=== PATIENT | female | born 1965 | race Caucasian/White ===

== ENCOUNTER → 2017-07-11 18:37 | Outpatient (CLI) | payer BC, SELFPAY ==
[2017-07-15 13:23] LABS: HPV Reflexed? NOT INDICATED
== END ==
PROVIDERS: Visit Provider Obstetrics & Gynecology
DX: Z12.4 Encounter for screening for malignant neoplasm of cervix (principal)
CPT/HCPCS: 88175; G0145

== ENCOUNTER → 2017-08-28 08:54 | Outpatient (CLI) | payer BC, SELFPAY ==
[2017-08-28 10:55] LABS: Hematocrit 37.8 % (37-47); Hemoglobin 13.1 g/dl (12.0-15.0); Mean Corp Hgb Conc 34.7 g/gl (32-36); Mean Corpuscular Hgb 31.3 pg (27.0-32.0); Mean Corpuscular Volume 90.2 fL (81-99); Mean Platelet Vol. 11.1 fl (6.2-12.0); Platelet Count 275 K/mm3 (150-450); RBC Distribution Width CV 12.4 % (11.6-14.6); RBC Distribution Width SD 40.3 fl (35.1-43.9); Red Blood Count 4.19 M/mm3 (4.2-5.4); White Blood Count 5.8 K/mm3 (4.4-11.0)
[2017-08-28 10:56] LABS: Scan Indicated on CBC? Y/N NO
[2017-08-28 14:49] LABS: Chlamydia Trachomatis by PCR Negative (Negative); Neisserai gonorrhoeae by PCR Negative (Negative); Probe Check PASS; Sample Adequacy Control PASS; Specimen Processing Control PASS
[2017-08-29 09:29] LABS: HSV 2 IgG < 0.91 index (0.00-0.90)
[2017-08-31 01:20] LABS: Rapid Plasmin Reagin (RPR) NONREACTIVE (NONREACTIVE)
[2017-08-31 03:08] LABS: HSV 1 By PCR Negative (Negative)
[2017-08-31 11:41] LABS: HSV 2 By PCR Negative (Negative)
== END ==
PROVIDERS: Visit Provider Obstetrics & Gynecology
DX: L98.9 Disorder of the skin and subcutaneous tissue, unspecified (principal)
CPT/HCPCS: 36415; 85027; 86592; 86695; 86696; 87491; 87529; 87591

== ENCOUNTER → 2017-10-31 16:23 | Outpatient (CLI) | payer BC, SELFPAY ==
--- NOTE | 2017-10-31 16:28 | BI_ITS ---
MAMMOGRAPHY - BILATERAL SCREENING 3-D JOSE ALBERTO SYNTHESIS REASON FOR EXAM: Female, 52 years old. Bilateral Screening 3-D tomosynthesis PERTINENT HISTORY: Aunt with breast cancer.. TECHNIQUE: 2-D mammograms and 3-D Jose Alberto synthesis of the breast (s) were performed. CAD was performed. COMPARISON: 06/02/2016 FINDINGS: The breast composition is Extremely dense tissue. Scattered benign calcifications are seen. No dense spiculated masses or suspicious microcalcifications are identified. No architectural distortion is identified. There is no skin thickening or retraction. There has been no significant change since the prior study. BI/SCREENING MAMM (CAD), BILAT IMPRESSION: No mammographic signs of malignancy. Routine yearly mammograms recommended. ASSESSMENT CATEGORY: BIRADS Category 2: Benign. A letter regarding these results will be sent to the patient by the facility within 30 days. FOLLOW UP RECOMMENDATION: Yearly follow up mammogram recommended. (A) Approximately 10% of breast cancers are not detected by mammography. A normal mammogram should not delay biopsy of a clinically suspicious abnormality. Electronically Signed: Don Hogan MD at 7:49 EDT , Service support ,
== END ==
PROVIDERS: Family Provider Family Medicine; PCP Family Medicine; Visit Provider Obstetrics & Gynecology
DX: Z12.31 Encounter for screening mammogram for malignant neoplasm of breast (principal)
CPT/HCPCS: 77063; 77067

== ENCOUNTER → 2018-12-27 10:34 | Outpatient (CLI) | payer BC, SELFPAY ==
--- NOTE | 2018-12-27 10:48 | BI_ITS ---
MAMMOGRAPHY - BILATERAL SCREENING REASON FOR EXAM: Female, 53 years old. Routine annual screening examination. PERTINENT HISTORY: Aunts with breast cancer. TECHNIQUE: Digital bilateral breast jose alberto (3D mammographic acquisition) in the CC and MLO projections. 2-D mediolateral oblique (MLO) and craniocaudad (CC) views of both breasts were obtained. CAD: Full Field Digital Mammography with Computer Added Detection was performed. COMPARISON: Comparison is made with prior study dated October 31, 2017 and June 02, 2016. FINDINGS: Breast Composition: The breasts are extremely dense, which lowers the sensitivity of mammography. There are no dominant masses or suspicious calcifications. No other significant abnormalities are identified. There has been no significant change since the prior study. BI/SCREEN MAMM (CAD) W/JOSE ALBERTO BILAT IMPRESSION: Stable bilateral screening mammogram. Yearly follow-up mammogram recommended. (A) ASSESSMENT CATEGORY: BIRADS Category 1: Negative. A letter regarding these results will be sent to the patient by the facility within 30 days. Approximately 10% of breast cancers are not detected by mammography. A normal mammogram should not delay biopsy of a clinically suspicious abnormality. [id number] Electronically Signed: Rufus Rogers, at 12:27 EDT , Service support ,
== END ==
PROVIDERS: Family Provider Family Medicine; PCP Family Medicine; Referring Provider Obstetrics & Gynecology; Visit Provider Obstetrics & Gynecology
DX: Z12.31 Encounter for screening mammogram for malignant neoplasm of breast (principal)
CPT/HCPCS: 77063; 77067

== ENCOUNTER → 2019-10-14 13:40 | Outpatient (CLI) | payer BC, SELFPAY ==
[2019-10-14 16:26] LABS: Hemoglobin 13.1 g/dL (12.0-15.0); Mean Corp Hgb Conc 32.8 g/dL (32-36); Mean Corpuscular Hgb 30.6 pg (27.0-32.0); Mean Corpuscular Volume 93.5 fL (81-99); Mean Platelet Vol. 10.9 fl (6.2-12.0); Platelet Count 240 K/mm3 (150-450); RBC Distribution Width CV 12.9 % (11.6-14.6); RBC Distribution Width SD 43.1 fl (35.1-43.9); Red Blood Count 4.28 M/mm3 (4.2-5.4); White Blood Count 7.5 K/mm3 (4.4-11.0)
[2019-10-14 17:23] LABS: HIV - WCH Non-Reactive (Nonreactive)
== END ==
PROVIDERS: PCP Family Medicine; Visit Provider Obstetrics & Gynecology
DX: B00.9 Herpesviral infection, unspecified (principal)
CPT/HCPCS: 36415; 85027; 86703

== ENCOUNTER → 2019-10-23 09:18 | Outpatient (CLI) | payer BC, SELFPAY ==
[2019-10-23 10:49] LABS: Glucose 98 mg/dL (74-106)
[2019-10-23 11:04] LABS: Hemoglobin A1c 5.6 % (3.8-5.6)
== END ==
PROVIDERS: PCP Family Medicine; Visit Provider Obstetrics & Gynecology
DX: R73.01 Impaired fasting glucose (principal)
CPT/HCPCS: 36415; 82947; 83036

== ENCOUNTER → 2020-05-14 | Outpatient (CLI) | payer BC, SELFPAY ==
[2020-05-21 01:29] LABS: HPV APTIMA, High Risk Positive (Negative)
== END | disposition home or self-care (01) ==
LOC: LABSPEC 13:34
PROVIDERS: PCP Family Medicine; Visit Provider Obstetrics & Gynecology
DX: Z12.4 Encounter for screening for malignant neoplasm of cervix (principal)
CPT/HCPCS: 87624; 88175; G0145

== ENCOUNTER → 2020-06-03 14:38 | Outpatient (CLI) | payer BC, SELFPAY ==
--- NOTE | 2020-06-03 | IMM_PTH ---
PATIENT: REID WAKEFIELD LOC: [facility] U#:[id number] AGE/SX: 59/F ROOM: RE06/03/[address]: Dr. Heather Aquino MD : 1965 BED: DIS: SPEC #: [id number] RECD: 06/07/20 14:01 STATUS: SONIA REQ #: [id number] MIA: 06/03/20 00:[address]: Heather King DEPT: IMMUNOHISTOCHEMISTRY RECD BY: Stacey Quesada ENTERED: 06/07/20 14:02 SP TYPE: IMMUNO OTHR DR: Dr. Roni Duckworth MD Tissues: A - Uterine cervix, NOS Procedures: p16 (initial) KI-67 (add) PHYSICIAN & INSTITUTION [place] [address] SPECIMEN INFORMATION: Tissue Source: A - Cervical biopsies 10, 5, 8 and 12 o'clock Clinical Info: ASCUS/HPV positive Specimen Number: [id number] CPT code: 21486, 20230 METHODOLOGY: Deparaffinized sections of prefer/formalin-fixed tissue or PAP/DQ stained slides are incubated with monoclonal/polyclonal antibodies/oligonucleotide probes. Localization is made via biotin free immunoperoxidase method. Appropriate controls are performed and reacted as expected. Results on target cell population are indicated in the following table: RESULTS: ANTIBODY / CLONE RESULT Block A P16 (E6H4) negative Ki-67 (30-9) negative These tests were developed and their performance characteristics determined by [facility]. They may not have been cleared or approved by the U.S. Food and Drug Administration. The FDA has determined that such clearance or approval is not necessary. The above immunohistochemical/dualISH markers are ordered and reviewed by the Pathologist. INTERPRETATION: A. Cervix at 10, 5, 8 and 12 o'clock, biopsies: Focal minimal changes suspicious for HPV cytopathic effects. SJ:dagoberto 06/08/2020
--- NOTE | 2020-06-03 | CER_PTH ---
PATIENT: REID WAKEFIELD LOC: [facility] U#:[id number] AGE/SX: 59/F ROOM: RE06/03/[address]: Dr. Heather Aquino MD : 1965 BED: DIS: SPEC #: [id number] RECD: 06/03/20 16:03 STATUS: SONIA MARY #: [id number] MIA: 06/03/20 00:[address]: Heather King DEPT: SURGICAL PATHOLOGY RECD BY: Melany Sidhu ENTERED: 06/04/20 08:20 SP TYPE: CERV OTHR DR: Dr. Roni Duckworth MD Tissues: A - Uterine cervix, NOS B - Endocervical Procedures: Surgery Specimen Level IV HEADER OPERATION: Colposcopy PRE-OP DIAGNOSIS: ASCUS HPV positive TISSUE SUBMITTED: A - Cervical biopsies 10, 5, 8 and 11 o'clock, B - ECC MICROSCOPIC DIAGNOSIS A. Cervix 10, 5, 8 and 11 o'clock, biopsy: Focal minimal changes suspicious for HPV cytopathic effects. Focal mild chronic inflammation. See comment. B. ECC: Fragments of benign ecto- and endocervical epithelium and mucous, negative for dysplasia. ALEJANDRO:dagoberto 06/07/2020 COMMENT A. Immunohistochemistry ([id number]) for surrogate HPV marker (p16) will be performed and results will be reported separately. MICROSCOPIC DESCRIPTION Slides are reviewed. GROSS DESCRIPTION A - Received in fixative is one container labeled with the patient's name and designated cervical biopsy. The specimen consists of multiple irregular fragments of light dee soft tissue that in aggregate measure 1.4 x 0.5 x 0.2 cm. The specimen is totally submitted in one cassette. B - Received in fixative is one container labeled with the patient's name and designated ECC. The specimen consists of multiple fragments of dee mucoid tissue that in aggregate measure 2.5 x 0.5 x 0.1 cm. The specimen is totally submitted in one cassette. / ALEJANDRO:dagoberto 06/04/20 TC:5 CPT: 04610 x2
== END ==
PROVIDERS: PCP Family Medicine; Visit Provider Obstetrics & Gynecology
DX: R87.810 Cervical high risk human papillomavirus (HPV) DNA test positive (principal)
CPT/HCPCS: 88305; 88341; 88342

== ENCOUNTER → 2020-07-08 13:51 | Outpatient (CLI) | payer BC, SELFPAY ==
--- NOTE | 2020-07-08 13:54 | BI_ITS ---
MAMMOGRAPHY - BILATERAL SCREENING REASON FOR EXAM: Female, 54 years old. Routine annual screening examination. PERTINENT HISTORY: Aunts with breast cancer. TECHNIQUE: Digital bilateral breast jose alberto (3D mammographic acquisition) in the CC and MLO projections. 2-D mediolateral oblique (MLO) and craniocaudad (CC) views of both breasts were obtained. CAD: Full Field Digital Mammography with Computer Added Detection was performed. COMPARISON: Comparison is made with prior study of 12/27/2018 and 10/31/2017. FINDINGS: Breast Composition: The breasts are extremely dense, which lowers the sensitivity of mammography. There are no dominant masses or suspicious calcifications. No other significant abnormalities are identified. There has been no significant change since the prior study. BI/SCRN MAMM (CAD)W/JOSE ALBERTO BILAT IMPRESSION: Stable bilateral screening mammogram. Yearly follow-up mammogram recommended. (A) ASSESSMENT CATEGORY: BIRADS Category 1: Negative. A letter regarding these results will be sent to the patient by the facility within 30 days. Approximately 10% of breast cancers are not detected by mammography. A normal mammogram should not delay biopsy of a clinically suspicious abnormality. [id number] Electronically Signed: Rufus Rogers MD at 14:58 EDT , Service support ,
== END ==
PROVIDERS: PCP Family Medicine; Referring Provider Obstetrics & Gynecology; Visit Provider Obstetrics & Gynecology
DX: Z12.31 Encounter for screening mammogram for malignant neoplasm of breast (principal)
CPT/HCPCS: 77063; 77067

== ENCOUNTER 2021-07-05 13:21 | Outpatient (CLI) | payer BC, SELFPAY ==
[2021-07-11 20:32] LABS: HPV APTIMA, High Risk Negative (Negative)
== END 2021-07-05 23:59 | disposition home or self-care (01) ==
LOC: LABSPEC 13:23
PROVIDERS: PCP Family Medicine; Visit Provider Obstetrics & Gynecology
DX: Z12.4 Encounter for screening for malignant neoplasm of cervix (principal)
CPT/HCPCS: 87624; 88175; G0145

== ENCOUNTER → 2021-08-19 | Outpatient (CLI) | payer BC, SELFPAY ==
--- NOTE | 2021-08-19 10:16 | BI_ITS ---
MAMMOGRAPHY - BILATERAL SCREENING REASON FOR EXAM: Female, 56 years old. Routine annual screening examination. PERTINENT HISTORY: Aunts with breast cancer. TECHNIQUE: Digital bilateral breast jose alberto (3D mammographic acquisition) in the CC and MLO projections. 2-D mediolateral oblique (MLO) and craniocaudad (CC) views of both breasts were obtained. CAD: Full Field Digital Mammography with Computer Added Detection was performed. COMPARISON: Comparison is made with prior study 07/08/2020 and 12/27/2018. FINDINGS: Breast Composition: The breasts are extremely dense, which lowers the sensitivity of mammography. There are no dominant masses or suspicious calcifications. Stable small benign-appearing bilateral axillary lymph nodes. No other significant abnormalities are identified. There has been no significant change since the prior study. BI/SCRN MAMM (CAD)W/JOSE ALBERTO BILAT IMPRESSION: Stable bilateral screening mammogram. Yearly follow-up mammogram recommended. (A) ASSESSMENT CATEGORY: BIRADS Category 2: Benign. A letter regarding these results will be sent to the patient by the facility within 30 days. Approximately 10% of breast cancers are not detected by mammography. A normal mammogram should not delay biopsy of a clinically suspicious abnormality. [id number] Electronically Signed: Rufus Rogers MD at 11:50 EDT ,
== END | disposition home or self-care (01) ==
LOC: OPBI 10:14
PROVIDERS: PCP Family Medicine; Visit Provider Obstetrics & Gynecology
DX: Z12.31 Encounter for screening mammogram for malignant neoplasm of breast (principal)
CPT/HCPCS: 77063; 77067

== ENCOUNTER → 2022-09-20 | Outpatient (CLI) | payer BC, SELFPAY ==
--- NOTE | 2022-09-20 10:11 | BI_ITS ---
MAMMOGRAPHY - BILATERAL SCREENING REASON FOR EXAM: Female, 57 years old. Routine annual screening examination. PERTINENT HISTORY: Aunts with breast cancer. TECHNIQUE: Digital bilateral breast jose alberto (3D mammographic acquisition) in the CC and MLO projections. 2-D mediolateral oblique (MLO) and craniocaudad (CC) views of both breasts were obtained. CAD: Full Field Digital Mammography with Computer Added Detection was performed. COMPARISON: Comparison is made with prior study August 19, 2021 and July 08, 2020. FINDINGS: Breast Composition: The breasts are extremely dense, which lowers the sensitivity of mammography. There are no dominant masses or suspicious calcifications. Stable small benign-appearing bilateral axillary lymph nodes. No other significant abnormalities are identified. There has been no significant change since the prior study. BI/SCRN MAMM (CAD)W/JOSE ALBERTO BILAT IMPRESSION: Stable bilateral screening mammogram. Yearly follow-up mammogram recommended. (A) ASSESSMENT CATEGORY: BIRADS Category 2: Benign. A letter regarding these results will be sent to the patient by the facility within 30 days. Approximately 10% of breast cancers are not detected by mammography. A normal mammogram should not delay biopsy of a clinically suspicious abnormality. [id number] Electronically Signed: Rufus Rogers MD at 11:17 EDT ,
== END | disposition home or self-care (01) ==
LOC: OPBI 10:09
PROVIDERS: PCP Family Medicine; Referring Provider Student in an Organized Health Care Education/Training Program; Visit Provider Student in an Organized Health Care Education/Training Program
DX: Z12.31 Encounter for screening mammogram for malignant neoplasm of breast (principal); Z80.3 Family history of malignant neoplasm of breast
CPT/HCPCS: 77063; 77067

== ENCOUNTER → 2023-10-25 | Outpatient (CLI) | payer BC, SELFPAY ==
--- NOTE | 2023-10-25 10:43 | BI_ITS ---
MAMMOGRAPHY - BILATERAL SCREENING REASON FOR EXAM: Female, 58 years old. Routine annual screening examination. PERTINENT HISTORY: Aunts with breast cancer. TECHNIQUE: Digital bilateral breast jose alberto (3D mammographic acquisition) in the CC and MLO projections. 2-D mediolateral oblique (MLO) and craniocaudad (CC) views of both breasts were obtained. CAD: Full Field Digital Mammography with Computer Added Detection was performed. COMPARISON: Comparison is made with prior study dated September 20, 2022 and August 19, 2021. FINDINGS: Breast Composition: The breasts are extremely dense, which lowers the sensitivity of mammography. There are no dominant masses or suspicious calcifications. Stable small benign appearing bilateral axillary lymph nodes. No other significant abnormalities are identified. There has been no significant change since the prior study. BI/SCRN MAMM (CAD)W/JOSE ALBERTO BILAT IMPRESSION: Stable bilateral screening mammogram. Yearly follow-up mammogram recommended. (A) ASSESSMENT CATEGORY: BIRADS Category 2: Benign. A letter regarding these results will be sent to the patient by the facility within 30 days. Approximately 10% of breast cancers are not detected by mammography. A normal mammogram should not delay biopsy of a clinically suspicious abnormality. [id number] Electronically Signed: Rufus Rogers MD at 13:26 EDT ,
== END | disposition home or self-care (01) ==
LOC: OPBI 10:41
PROVIDERS: PCP Obstetrics & Gynecology; Referring Provider Obstetrics & Gynecology; Visit Provider Obstetrics & Gynecology
DX: Z12.31 Encounter for screening mammogram for malignant neoplasm of breast (principal); Z80.3 Family history of malignant neoplasm of breast
CPT/HCPCS: 77063; 77067

== ENCOUNTER → 2024-11-07 | Outpatient (CLI) | payer BC, SELFPAY ==
--- NOTE | 2024-11-07 10:40 | BI_ITS ---
EXAM: SCRN MAMM (CAD)W/JOSE ALBERTO BILAT DATE: 11/07/2024 CLINICAL HISTORY: F, Age 59 y/o , SCREENING TECHNIQUE: SCRN MAMM (CAD)W/JOSE ALBERTO BILAT COMPARISON: Prior exam(s) were compared FINDINGS: TISSUE DENSITY: The breasts are heterogeneously dense, which may obscure small masses. Bilateral Breast Mammographic Findings: No suspicious masses, calcifications or other abnormalities are identified. BI/SCRN MAMM (CAD)W/JOSE ALBERTO BILAT IMPRESSION: No mammographic evidence of malignancy in either breast OVERALL FINAL ASSESSMENT BI-RADS 1: NEGATIVE. RECOMMENDATION: Routine annual follow-up in 1 Year A letter with findings and recommendations will be mailed to the patient. Reading Location: [id number]
--- OUTSIDE RECORDS SUMMARY | 2024-11-07 17:41 | XMS RPT_ITS | CCD ---
Author Organization [facility] Care Team Providers Care Costume Mistress Name Role Phone Edna Duckworth Primary Care Provider Required, No Pcp Unavailable Unavailable Brian Alberto Unavailable Unavailable Miryam Zapata Dr. Miryam Zapata Primary Care Raniv aildwight Alberto, Ms. Brian Mccartney Attending Arik Alberto, Ms. Brian Mccartney Attending Arik Alberto, Ms. Brian Mccartney Referring Arik Zapata, Dr. Miryam Cartwright Primary Care Allie Alberto, Ms. Brian Mccartney Attending Arik Zapata, Dr. Miryam Cartwright Primary Care Allie Alberto, Ms. Brian Mccartney Attending Miryam Cuevas MD Primary Care Provider Lexie Covarrubias MD Primary Care Provider LEXIE COVARRUBIAS Primary Care Unavailable Edna Duckworth MD Primary Care Provider [phone] MIRYAM ZAPATA Primary Care Unavailable BRIAN ALBERTO Attending Unavailable LEXIE COVARRUBIAS Primary Care Unavailable NATE ZELAYA Attending Unavailable LEXIE COVARRUBIAS Attending Unavailable LEXIE COVARRUBIAS Primary Care Unavailable EDNA DUCKWORTH Primary Care Unavailable JENAE COSTA Attending Unavailable Jenae Costa Referring Unavailable Jenae Costa Attending Unavailable Lubna Velazquez Primary Care Unavailable Allergies Allergy Classification Reported Allergen(s) Allergy Type Date of Onset Reaction(s) Facility (7 sources) Codeine; Translations: [CODEINE] Drug Allergy 4 Nausea/vomiting , Vomiting [facility] (7 sources) Morphine; Translations: [MORPHINE] Drug Allergy Nausea/vomiting , Vomiting [facility] Work Phone: Medications Current Medications Medication Drug Class(es) Dates Sig (Normalized) Sig (Original) amoxicillin 875 mg / clavulanate 125 mg oral tablet (2 sources) Penicillin-class Antibacterial Start: 10-18-2023 End: 10-28-2023 take 1 tablet by mouth twice daily amoxicillin-pot clavulanate (Augmentin) 875-125 mg tablet Indications: Acute sinusitis, recurrence not specified, unspecified location Take 1 tablet by mouth 2 times a day for 10 days. Take with a meal. 20 tablet 10/18/2023 10/28/2023 Active Start: 04-25-2022 End: 05-04-2022 take 1 tablet by mouth twice daily at mealtime amoxicillin-clavulanate 875 mg-125 mg oral tablet ; 875 milligram(s) orally 2 times a day Quantity: 20 Refills: 0 Ordered: 25-Apr-2022 Brian Alberto Start: 25-Apr-2022 End: 04-May-2022 Generic Substitution Allowed Comments: Finish all this medication unless otherwise directed by prescriber.Take with food or milk. Comment on above: Finish all this medi cation unless otherwise directed by prescriber.Take with food or milk. benoxinate hydrochloride 4 mg/ml / fluorescein sodium 2.5 mg/ml ophthalmic solution (1 source) Diagnostic Dye Start: 07-21-19 End: 07-22-19 fluorescein-benoxin ate 0.25-0.4 % 1 Drop (FLURESS) cetirizine hydrochloride 5 mg oral tablet (3 sources) Histamine-1 Receptor Antagonist take 1 tablet by mouth once daily cetirizine (ZYRTEC) 5 mg tablet Take 5 mg by mouth once daily. Active dexamethasone 1 mg/ml / neomycin 3.5 mg/ml / polymyxin b 34920 unt/ml ophthalmic suspension (1 source) Aminoglycoside Antibacterial, Polymyxin-class Antibacterial, Corticosteroid Start: 06-21-19 End: 06-28-19 take 1 drop(s) into the eye(s) twice daily neomycin-polymyxin- dexAMETHasone (Maxitrol) 3.5mg/mL-10,000 unit/mL-0.1 % ophthalmic suspension Indications: Blepharitis of left lower eyelid, unspecified type Administer 1 drop into the left eye 2 times a day for 7 days. 5 mL 0 06/21/2023 06/28/2023 Active erythromycin 0.005 mg/mg ophthalmic ointment (3 sources) Macrolide, Macrolide Antimicrobial Start: 06-21-19 End: 07-01-19 erythromycin (Romycin) 5 mg/gram (0.5 %) ophthalmic ointment Indications: Blepharitis of left lower eyelid, unspecified type Apply to left eye 3 times a day for 10 days. Apply Amount per Dose: 0.25 inch (~0.5 cm) per dose 3.5 g 0 06/21/2023 07/01/2023 Active Start: 07-04-2022 End: 07-10-2022 erythromycin 0.5% ophthalmic ointment ; 1 application in left eye 3 times a day x 7 days Quantity: 3 Refills: 0 Ordered: 04-Jul-2022 Brian Alberto Start: 04-Jul-2022 End: 10-Jul-2022 Generic Substitution Allowed Comments: For the eye. Start: 05-10-2021 End: 07-06-2021 erythromycin (ROMYCIN) 5 mg/ gram (0.5 %) ophthalmic ointment Use 1 application in both eyes daily at bedtime. Rub on lids and lashes at bedtime 3.5 g 1 05/10/2021 07/06/2021 Discontinued (Clinical Decision) Comment on above: Use 1 application in both eyes daily at bedtime. Rub on lids and lashes at bedtime For the eye. estradiol 0.1 mg/ml vaginal cream (8 sources) Estrogen Start: 08-13-2023 End: 08-12-2025 estradiol (ESTRACE) 0.01 % (0.1 mg/gram) vaginal cream Indications: Vaginal dryness, menopausal Use 1 g vaginally two times a week. 24 g 3 08/12/2024 08/12/2025 Active estradiol (Estra ce) 0.01 % (0.1 mg/gram) vaginal cream Insert 0.5 Applicatorfuls (2 g) into the vagina 1 (one) time per week. Active End: 08-13-2023 estradiol (ESTRACE) 0.01 % ( 0.1 mg/gram) vaginal cream Use vaginally one time a week. 0 08/13/2023 Discontinued fluorometholone 1 mg/ml ophthalmic suspension (1 source) Corticosteroid Start: 07-21-2024 fluorometholone (FML LIQUID FILM) 0.1 % ophthalmic suspension Use 1 drop in both eyes two times a day. 07/21/2024 Active fluticasone propionate 0.05 mg/actuat metered dose nasal spray (13 sources) Corticosteroid Start: 01-06-2019 take 2 spray(s) nasal route once daily fluticasone (FLONASE) 50 mcg/actuation nasal spray SPRAY 2 SPRAYS INTO EACH NOSTRIL EVERY DAY 4 01/06/2019 Active Start: 01-06-2019 take 2 spray(s) nasa l route once daily fluticasone (Flonase) 50 mcg/actuation nasal spray Administer 2 sprays into each nostril once daily. 01/06/2019 Active Flonase Quantity : 0 Refills: 0 Ordered: 04-Jul-2022 Yisel Balbuena Generic Substitution Allowed Comment on above: SPRAY 2 SPRAYS INTO EACH NOSTRIL EVERY DAY loratadine 10 mg oral tablet (4 sources) loratadine (Clar itin) 10 mg tablet Take by mouth. Active Claritin Quantit y: 0 Refills: 0 Ordered: 13-Nov-2022 Yisel Balbuena Generic Substitution Allowed montelukast 10 mg oral tablet (8 sources) Leukotriene Receptor Antagonist Start: 01-06-2019 take 1 tablet by mouth once daily montelukast (SINGULAIR) 10 mg tablet TAKE 1 TABLET BY MOUTH EVERY DAY AT NIGHT 3 01/06/2019 Active Comment on above: TAKE 1 TABLET BY RAEANN TH EVERY DAY AT NIGHT ofloxacin 3 mg/ml ophthalmic solution (1 source) Quinolone Antimicrobial Start: 07-04-2022 End: 07-10-2022 take 1 drop(s) into the eye(s) three times daily ofloxacin 0.3% ophthalmic solution ; 1 drop(s) in left eye 3 times daily x 7 days Quantity: 5 Refills: 0 Ordered: 04-Jul-2022 Brian Alberto Start: 04-Jul-2022 End: 10-Jul-2022 Generic Substitution Allowed Comments: For the eye. Comment on above: For the eye. valACYclovir 1000 mg oral tablet (15 sources) Herpesvirus Nucleoside Analog DNA Polymerase Inhibitor, Herpes Simplex Virus Nucleoside Analog DNA Polymerase Inhibitor, Herpes Zoster Virus Nucleoside Analog DNA Polymerase Inhibitor Start: 07-24-2023 End: 08-12-2025 take 1 tablet by mouth once daily valACYclovir (VALTREX) 1 gram tablet Indications: Recurrent genital herpes Take 1 tablet by mouth once daily. 90 tablet 3 08/12/2024 08/12/2025 Active Start: 04-10-2021 End: 08-13-2023 take 1000 mg by mouth once daily valACYclovir (VALTREX) 1 gram Take 1,000 mg by mouth once daily. 0 04/10/2021 08/13/2023 Discontinued Valtrex Quantity : 0 Refills: 0 Ordered: 25-Apr-2022 Yisel Balbuena Generic Substitution Allowed Comment on above: Take 1,000 mg by raeann once daily. Completed/Discontinued Medications Medication Drug Class(es) Dates Sig (Normalized) Sig (Original) loteprednol etabonate 5 mg/ml / tobramycin 3 mg/ml ophthalmic suspension (1 source) Aminoglycoside Antibacterial Start: 06-14-2021 End: 07-06-2021 Tobramycin-Lotepre d (ZYLET) 0.3-0.5 % drps Use 1 Drop in both eyes four times daily. Use 1 Drop in both eyes three times a day for 3 days, twice a day for 3 days, once daily for 3 days, then discontinue 5 mL 1 06/14/2021 07/06/2021 Discontinued (Clinical Decision) Comment on above: Use 1 Drop in both e yes four times daily. Use 1 Drop in both eyes three times a day for 3 days, twice a day for 3 days, once daily for 3 days, then discontinue metroNIDAZOLE 500 mg oral tablet (5 sources) Nitroimidazole Antimicrobial Start: 03-17-2008 End: 08-13-2023 metronidazole(FLAG YL 500 MG TAB) 1 bid X 7 days 14 0 03/17/2008 08/13/2023 Discontinued (Course of therapy completed) Comment on above: 1 bid X 7 days Problems Active Problems Problem Classification Problem Date Documented Date Episodic/Chronic E Codes: Natural/environment (1 source) Exposure to other specified factors, initial encounter; Translations: [Exposure to other specified factors, initial encounter] Onset: 11-13-2022 Episodic Headache; including migraine (1 source) Headache; including migraine; Translations: [Headache, unspecified] Onset: 04-25-2022 Inflammation; infection of eye (except that caused by tuberculosis or sexually transmitteddisease) (8 sources) Bilateral punctate keratitis of eyes; Translations: [Punctate keratitis, bilateral] Onset: 02-14-2019 06-14-2021 Chronic Menopausal disorders (5 sources) Vaginal dryness; Translations: [Menopausal and female climacteric states] Onset: 08-12-2024 08-13-2023 Chronic Other connective tissue disease (2 sources) Pain in left foot; Translations: [Pain in left foot] Onset: 11-13-2022 Episodic Other eye disorders (1 source) Bilateral epiphora of eyes due to excessive tear production; Translations: [Epiphora due to excess lacrimation, bilateral lacrimal glands] Episodic Other injuries and conditions due to external causes (1 source) Injury of left ankle; Translations: [Knee, leg, ankle, and foot injury] 11-13-2022 Episodic Other injuries and conditions due to external causes (1 source) Unspecified injury of left ankle, initial encounter; Translations: [Unspecified injury of left ankle, initial encounter] Onset: 11-13-2022 Episodic Other non-traumatic joint disorders (1 source) Pain in left ankle and joints of left foot; Translations: [Pain in left ankle] Onset: 11-13-2022 Episodic Other nutritional; endocrine; and metabolic disorders (1 source) Unintentional weight gain; Translations: [Abnormal weight gain] 08-12-2024 Episodic Other nutritional; endocrine; and metabolic disorders (1 source) Abnormal weight gain; Translations: [Unintended weight gain] Onset: 08-12-2024 Episodic Other screening for suspected conditions (not mental disorders or infectious disease) (18 sources) Patient encounter status; Translations: [Encounter for screening for malignant neoplasm of colon] Onset: 08-07-2023 08-07-2023 Episodic Other upper respiratory disease (12 sources) Seasonal allergy; Translations: [Other seasonal allergic rhinitis] Onset: 05-10-2021 Chronic Other upper respiratory disease (1 source) Allergic rhinitis due to pollen; Translations: [Allergic rhinitis due to pollen] Chronic Other upper respiratory infections (6 sources) Acute sinusitis; Translations: [Acute sinusitis, unspecified] Onset: 04-25-2022 04-25-2022 Episodic Unclassified (2 sources) ?URI 04-25-2022 Comment on above: ?URI Unclassified (2 sources) EYE PAIN 07-04-2022 Comment on above: EYE PAIN Unclassified (1 source) Acute bacterial conjunctivitis of left eye 07-04-2022 Unclassified (2 sources) L FOOT PAIN 11-13-2022 Comment on above: L FOOT PAIN Unclassified (1 source) Injury of left ankle, initial encounter 11-13-2022 Unclassified (1 source) Cough, unspecified; Translations: [Cough, unspecified] Onset: 04-25-2022 Viral infection (4 sources) Genital herpes simplex; Translations: [Herpesviral infection of urogenital system, unspecified] Onset: 08-07-2023 08-07-2023 Chronic Past or Other Problems Problem Classification Problem Date Documented Date Episodic/Chronic Anal and rectal conditions (5 sources) Rectal prolapse; Translations: [Rectal prolapse] Onset: 08-07-2023 08-07-2023 Episodic Diabetes mellitus without complication (7 sources) Prediabetes; Translations: [Prediabetes] Onset: 08-07-2023 08-07-2023 Episodic Immunizations and screening for infectious disease (4 sources) Requires tetanus and diphtheria vaccination; Translations: [Encounter for immunization] Onset: 08-07-2023 08-07-2023 Episodic Inflammation; infection of eye (except that caused by tuberculosis or sexually transmitteddisease) (16 sources) Allergic conjunctivitis of bilateral eyes; Translations: [Acute atopic conjunctivitis, bilateral] Onset: 05-10-2021 Episodic Malaise and fatigue (1 source) Other malaise; Translations: [Other malaise] Onset: 04-25-2022 Episodic Other eye disorders (8 sources) Meibomian gland dysfunction of bilateral eyes; Translations: [Meibomian gland dysfunction right eye, upper and lower eyelids] Onset: 01-17-2019 01-17-2019 Episodic Other eye disorders (7 sources) Bilateral epiphora of eyes; Translations: [Unspecified epiphora, bilateral] Onset: 07-20-2021 Episodic Other eye disorders (1 source) Other specified disorders of eye and adnexa; Translations: [Other specified disorders of eye and adnexa] Onset: 07-04-2022 Episodic Unclassified (2 sources) Onset: 08-07-2023 08-07-2023 Unclassified (2 sources) Patient encounter status 08-12-2024 Results Test Name Value Interpretation Reference Range Facil josé luis Pisano 08-12-2024 CNOV Office Visit (OBGYWM ) JENNY WAKEFIELD ([id number]) 1965 F Date Time Provider Department 08/12/24 2:30 PM JENAE COSTA OBBRANNONWKerrie During your visit today, we recorded the following information about you: Blood pressure Weight Height 132/86 75.8 kg 1.57 m Jenae Costa APRN.CNP 08/12/2024 6:31 PM Signed Correspondence Dictator offered: Patient declinesTripp Alvarado is a 59 year old who presents for an annual gynecologic exam without complaints. Postmenopausal: Yes since age 52 HRT use: Yes vaginal cream estrace Still get period: No Menopause symptoms: Hot flashes; Night sweats; Vaginal dryness - symptoms improving STD: genital HSV, no outbreaks Time with current partner: 37 years HPV vaccine: No; Last pap smear: 08/13/2023 normal HPV: 2023 negative History of abnormal pap:Yes, ASCUS HRHPV pos colposcopy Bothersome pelvic pain: No Last mammogram: 2023 normal [facility] History of abnormal mammogram: Yes axillary lymph nodes noted OB History Gravida2 Para2 Term0 Preterm0 AB0 Living3 SAB0 IAB0 Ectopic0 Multiple1 Live Births0 Comment: Twin girls 1 boy FAMILY HISTORY Problem Relation Age of Onset Macular Degen Paternal Grandmother Breast Cancer Paternal Aunt Breast Cancer Paternal Aunt Breast Cancer Paternal Aunt SOCIAL HISTORY Social History Tobacco Use Smoking status: Former Smokeless tobacco: Never Vaping Use Vaping status: Never Used Substance Use Topics Alcohol use: No Drug use: No REVIEW OF SYSTEMS Abdomen: No abdominal pain, nausea, vomiting, diarrhea, or constipation. No bloating, early satiety, indigestion, or increased flatulence. Bladder: No dysuria, gross hematuria, urinary frequency, urinary urgency, or incontinence Breast: No breast lumps, nipple d/c, overlying skin changes, redness or skin retraction Allergies and current medication updated:Yes SENSITIVE EXAM: The sensitive examination was discussed with the Patient or Patient's Authorized Crystal Gazer. As applicable, any other physician, advance practice provider, medical student, or other health professional student that will be observing or involved in the sensitive examination for educational or training purposes was discussed with the Patient or Authorized Crystal Gazer. The Patient or Authorized Crystal Gazer has agreed to proceed with the sensitive examination. (Sensitive examination includes inspection and/or palpation of the breasts, pelvis, prostate and anorectal regions). EXAM: BP 132/86 Ht 5' 1.811 (1.57m) Wt 167 lb (75.8kg) LMP 03/04/2008 BMI 30.73 kg/(m2). GENERAL: pleasant, female in no apparent distress HEENT: Normocephalic, atraumatic, mucus membranes moist, and no lesions NECK: Supple, full range of motion, no adenopathy, and thyroid normal DERMATOLOGY: Normal, without lesions, non-icteric, and non-hirsute BREAST: soft, non-tender, symmetric, no dominant mass, normal nipple-areolar complex, no lymphadenopathy, and no nipple discharge CHEST: Normal inspiratory effort ABDOMEN: soft, non-tender, and no masses PELVIC: external genitalia normal, normal Bartholin's glands, urethra, Wacissa's glands, no vulvar lesions, no cervical lesions, good vaginal support, physiologic discharge present, normal appearing perineal body and perianal region BIMANUAL: uterus normal size, shape and consistency, no adnexal masses, and non-tender RECTOVAGINAL: deferred. NEURO: alert and oriented x3,exam grossly non-focal EXTREMITIES: normal ASSESSMENT/PLAN: 1) Health maintenance: Pap/HPV up to date. Mammogram ordered Mammogram up to date Nutrition, exercise and routine health maintenance exams reviewed. Calcium/Vitamin D supplementation information provided. Colon cancer screening: patient to discuss with PCP 2. Vaginal dryness, menopausal - ICD9: 627.2, ICD10: N95.1 - ESTRADIOL 0.01% (0.1 MG/GRAM) VAGINAL CREAM 3. Recurrent genital herpes - ICD9: 054.10, ICD10: A60.00 - VALACYCLOVIR 1 GRAM TABLET 4. Unintended weight gain - ICD9: 783.1, ICD10: R63.5 - Eat primarily whole foods. Limit carbs, especially processed carbs. Eat - Meat, vegetables and fruits with skin on if possible, eggs, cheese. - Do not drink your calories - 30 grams of protein for your first meal of the day decreases your hunger during the day by up to 40 %. Options include: Premier Protein or generic 30 gm protein 1 gm sugar or 5 eggs or 2-3 eggs and some unbreaded meat and/or cheese. No fruit, vegetables, bread, grain, yogurt, Smoothies, etc. - Walk for 15 minutes immediately after meal 5) Follow up one year or sooner as needed VAL Baldwin Amy, APRN.CNP 08/12/2024 3:18 PM Signed - Eat primarily whole foods. Limit carbs, especially processed carbs. Eat - Meat, vegetables and fruits with skin on if possible, eggs, cheese. - Do not drink your calories - 30 grams of protein for your first patsy (more content not included)... Normal [facility] CBC W Auto Differential pane l (Bld)on 08-07-2023 Basophils (Bld) [#/Vol] 0.04 10*3/uL [facility] Basophils/100 WBC (Bld) 0.5 % 0.0 - 2.0 % [facility] Eosinophils (Bld) [#/Vol] 0.13 10*3/uL [facility] Eosinophils/100 WBC (Bld) 1.6 % 0.0 - 6.0 % [facility] Erythrocyte distribution width (RBC) [Ratio] 12.6 % 11.5 - 14.5 % [facility] Hematocrit (Bld) [Volume fraction] 41.1 % 36.0 - 46.0 % [facility] Hemoglobin (Bld) [Mass/Vol] 13.5 g/dL 12.0 - 16.0 g/dL [facility] Immature granulocytes (Bld) [#/Vol] 0.01 10*3/uL [facility] Immature granulocytes/100 WBC (Bld) 0.1 % 0.0 - 0.9 % [facility] Comment on above: Immature Granulocyte Count (IG) includes promyelocytes, myelocytes and metamyelocytes but does not include bands. Percent differential counts (%) should be interpreted in the context of the absolute cell counts (cells/UL). Lymphocytes (Bld) [#/Vol] 2.86 10*3/uL [facility] Lymphocytes/100 WBC (Bld) 36.2 % 13.0 - 44.0 % [facility] MCH (RBC) [Entitic mass] 31.4 pg 26.0 - 34.0 pg [facility] MCHC (RBC) [Mass/Vol] 32.8 g/dL 32.0 - 36.0 g/dL [facility] MCV (RBC) [Entitic vol] 96 fL 80 - 100 fL [facility] Monocytes (Bld) [#/Vol] 0.61 10*3/uL [facility] Monocytes/100 WBC (Bld) 7.7 % 2.0 - 10.0 % [facility] Neutrophils (Bld) [#/Vol] 4.24 10*3/uL [facility] Comment on above: Percent differential counts (%) should be interpreted in the context of the absolute cell counts (cells/uL). Neutrophils/100 WBC (Bld) 53.9 % 40.0 - 80.0 % [facility] Nucleated RBC/100 WBC (Bld) [Ratio] 0.0 % [facility] Platelets (Bld) [#/Vol] 280 10*3/uL [facility] RBC (Bld) [#/Vol] 4.30 10*6/uL [facility] WBC (Bld) [#/Vol] 7.9 10*3/uL [facility] Basophils (Bld) [#/Vol] 0.04 x10*3/uL Normal 0.00-0.10 [facility] Comment on above: Performed By: #### 5 7021-8 #### ZUNIGA VIRGINIE ([id number]) [facility] ([facility]) [address] [place] [address] Basophils/100 WBC (Bld) 0.5 % Normal 0.0-2.0 [facility] Comment on above: Performed By: #### 5 7021-8 #### EFRAIN RACHEL ([id number]) [facility] ([facility]) [address] [place] [phone] Eosinophils (Bld) [#/Vol] 0.13 x10*3/uL Normal 0.00-0.70 [facility] Comment on above: Performed By: #### 70-8 #### EFRAIN RACHEL ([id number]) [facility] ([facility]) [address] [place] [phone] Eosinophils/100 WBC (Bld) 1.6 % Normal 0.0-6.0 [facility] Comment on above: Performed By: #### 7021-8 #### EFRAIN RACHEL ([id number]) [facility] ([facility]) [address] [place] [phone] Erythrocyte distribution width (RBC) [Ratio] 12.6 % Normal 11.5-14.5 [facility] Comment on above: Performed By: #### 7021-8 #### EFRAIN RACHEL ([id number]) [facility] ([facility]) [address] [place] [phone] Hematocrit (Bld) [Volume fraction] 41.1 % Normal 36.0-46.0 [facility] Comment on above: Performed By: #### 7021-8 #### EFRAIN RACHEL ([id number]) [facility] ([facility]) [address] [place] [phone] Hemoglobin (Bld) [Mass/Vol] 13.5 g/dL Normal 12.0-16.0 [facility] Comment on above: Performed By: #### 7021-8 #### EFRAIN RACHEL ([id number]) [facility] ([facility]) [address] [place] [phone] Immature granulocytes (Bld) [#/Vol] 0.01 x10*3/uL Normal 0.00-0.70 [facility] Comment on above: Performed By: #### 7021-8 #### EFRAIN RACHEL ([id number]) [facility] ([facility]) [address] [place] [phone] Immature granulocytes/100 WBC (Bld) 0.1 % Normal 0.0-0.9 [facility] Comment on above: Result Comment: Ade ture Granulocyte Count (IG) includes promyelocytes, myelocytes and metamyelocytes but does not include bands. Percent differential counts (%) should be interpreted in the context of the absolute cell counts (cells/UL). Performed By: #### 5 7021-8 #### EFRAIN RACHEL ([id number]) [facility] ([facility]) [address] [place] [phone] Lymphocytes (Bld) [#/Vol] 2.86 x10*3/uL Normal 1.20-4.80 [facility] Comment on above: Performed By: #### 5 7021-8 #### EFRAIN RACHEL ([id number]) [facility] ([facility]) [address] [place] [phone] Lymphocytes/100 WBC (Bld) 36.2 % Normal 13.0-44.0 [facility] Comment on above: Performed By: #### 5 7021-8 #### EFRAIN RACHEL ([id number]) [facility] ([facility]) [address] [place] [address] [phone] MCH (RBC) [Entitic mass] 31.4 pg Normal 26.0-34.0 [facility] Comment on above: Performed By: #### 5 7021-8 #### EFRAIN RACHEL ([id number]) [facility] ([facility]) [address] [place] [address] [phone] MCHC (RBC) [Mass/Vol] 32.8 g/dL Normal 32.0-36.0 [facility] Comment on above: Performed By: #### 5 7021-8 #### EFRAIN RACHEL ([id number]) [facility] ([facility]) [address] [place] [address] 28877 MCV (RBC) [Entitic vol] 96 fL Normal 80-100 [facility] Comment on above: Performed By: #### 5 7021-8 #### EFRAIN RACHEL ([id number]) [facility] ([facility]) [address] [place] [address] [phone] Monocytes (Bld) [#/Vol] 0.61 x10*3/uL Normal 0.10-1.00 [facility] Comment on above: Performed By: #### 5 7021-8 #### EFRAIN RACHEL ([id number]) [facility] ([facility]) [address] [place] [address] [phone] Monocytes/100 WBC (Bld) 7.7 % Normal 2.0-10.0 [facility] Comment on above: Performed By: #### 5 7021-8 #### EFRAIN RACHEL ([id number]) [facility] ([facility]) [address] [place] [address] 53650 Neutrophils (Bld) [#/Vol] 4.24 x10*3/uL Normal 1.20-7.70 [facility] Comment on above: Result Comment: Perc ent differential counts (%) should be interpreted in the context of the absolute cell counts (cells/uL). Performed By: #### 5 7021-8 #### EFRAIN RACHEL ([id number]) [facility] ([facility]) [address] [place] [address] 94933 Neutrophils/100 WBC (Bld) 53.9 % Normal 40.0-80.0 [facility] Comment on above: Performed By: #### 5 7021-8 #### EFRAIN RACHEL ([id number]) [facility] ([facility]) [address] [place] [address] 68970 Nucleated RBC/100 WBC (Bld) [Ratio] 0.0 /100 WBCs Normal 0.0-0.0 [facility] Comment on above: Performed By: #### 5 7021-8 #### EFRAIN RACHEL ([id number]) [facility] ([facility]) [address] [place] [address] 62059 Platelets (Bld) [#/Vol] 280 x10*3/uL Normal 150-450 [facility] Comment on above: Performed By: #### 5 7021-8 #### EFRAIN RACHEL ([id number]) [facility] ([facility]) [address] [place] [address] 78131 RBC (Bld) [#/Vol] 4.30 x10*6/uL Normal 4.00-5.20 [facility] Comment on above: Performed By: #### 5 7021-8 #### EFRAIN RACHEL ([id number]) [facility] ([facility]) [address] [place] [address] 48765 WBC (Bld) [#/Vol] 7.9 x10*3/uL Normal 4.4-11.3 [facility] Comment on above: Performed By: #### 5 7021-8 #### EFRAIN RACHEL ([id number]) [facility] ([facility]) [address] [place] [address] Comprehensive metabolic 2000 panelon 08-07-2023 Albumin BCP dye [Mass/Vol] 4.8 g/dL Normal 3.4-5.0 [facility] Comment on above: Performed By: #### 2 4323-8 #### EFRAIN RACHEL ([id number]) [facility] ([facility]) [address] [place] [address] 46915 ALP [Catalytic activity/Vol] 102 U/L Normal 33-110 [facility] Comment on above: Performed By: #### 2 4323-8 #### EFRAIN RACHEL ([id number]) [facility] ([facility]) [address] [place] [address] 96268 ALT With P-5'-P [Catalytic activity/Vol] 36 U/L Normal 7-45 [facility] Comment on above: Result Comment: Patience ents treated with Sulfasalazine may generate falsely decreased results for ALT. Performed By: #### 2 4323-8 #### EFRAIN RACHEL ([id number]) [facility] ([facility]) [address] [place] [address] 16834 Anion gap [Moles/Vol] 11 mmol/L Normal 10-20 [facility] Comment on above: Performed By: #### 2 4323-8 #### EFRAIN RACHEL ([id number]) [facility] ([facility]) [address] [place] [address] AST With P-5'-P [Catalytic activity/Vol] 25 U/L Normal 9-39 [facility] Comment on above: Performed By: #### 2 4322-8 #### EFRAIN RACHEL ([id number]) [facility] ([facility]) [address] [place] [address] Bilirubin [Mass/Vol] 0.4 mg/dL Normal 0.0-1.2 [facility] Comment on above: Performed By: #### 2 4322-8 #### EFRAIN RACHEL ([id number]) [facility] ([facility]) [address] [place] [address] 68575 Calcium [Mass/Vol] 10.1 mg/dL Normal 8.6-10.3 [facility] Comment on above: Performed By: #### 2 4322-8 #### EFRAIN RACHEL ([id number]) [facility] ([facility]) [address] [place] [address] 14417 Chloride [Moles/Vol] 103 mmol/L Normal 98-107 [facility] Comment on above: Performed By: #### 2 4322-8 #### EFRAIN RACHEL ([id number]) [facility] ([facility]) [address] [place] [address] 20897 CO2 [Moles/Vol] 30 mmol/L Normal 21-32 [facility] Comment on above: Performed By: #### 2 4322-8 #### EFRAIN RACHEL ([id number]) [facility] ([facility]) [address] [place] [address] 32966 Creatinine [Mass/Vol] 0.96 mg/dL Normal 0.50-1.05 [facility] Comment on above: Performed By: #### 2 432-8 #### EFRAIN RACHEL ([id number]) [facility] ([facility]) [address] [place] [address] 92956 Glomerular filtration rate/1.73 sq M.predicted 70 mL/min/1.73m*2 Normal >60 [facility] Comment on above: Result Comment: Calc ulations of estimated GFR are performed using the 2020 CKD-EPI Study Refit equation without the race variable for the IDMS-Traceable creatinine methods. https://jasn.asnjournals.org/content//ASN.625716773 8 Performed By: #### 2 4323-8 #### EFRAIN RACHEL ([id number]) [facility] ([facility]) [address] [place] [address] 02815 Glucose [Mass/Vol] 88 mg/dL Normal 74-99 [facility] Comment on above: Performed By: #### 2 4323-8 #### EFRAIN RACHEL ([id number]) [facility] ([facility]) [address] [place] [address] 69006 Potassium [Moles/Vol] 4.1 mmol/L Normal 3.5-5.3 [facility] Comment on above: Performed By: #### 2 4323-8 #### EFRAIN RACHEL ([id number]) [facility] ([facility]) [address] [place] [address] 83560 Protein [Mass/Vol] 7.2 g/dL Normal 6.4-8.2 [facility] Comment on above: Performed By: #### 2 4323-8 #### EFRAIN RACHEL ([id number]) [facility] ([facility]) [address] [place] [address] 06785 Sodium [Moles/Vol] 140 mmol/L Normal 136-145 [facility] Comment on above: Performed By: #### 2 4323-8 #### EFRAIN RACHEL ([id number]) [facility] ([facility]) [address] [place] [address] 42986 Urea nitrogen [Mass/Vol] 19 mg/dL Normal 6-23 [facility] Comment on above: Performed By: #### 2 4323-8 #### EFRAIN RACHEL ([id number]) [facility] ([facility]) [address] [place] [address] 68653 HbA1c (Bld) [Mass fraction]o n 08-07-2023 Average glucose Estimated from glycated hemoglobin (Bld) [Mass/Vol] 126 mg/dL Normal Not Established [facility] Comment on above: Order Comment: Diagn osis of Diabetes-Adults Non-Diabetic: < or = 5.6% Increased risk for developing diabetes: 5.7-6.4% Diagnostic of diabetes: > or = 6.5% Monitoring of Diabetes Age (y)....................... Therapeutic Goal (%) Adults: >18.........................<7.0 Pediatrics: 13-18...................<7.5 Pediatrics: 7-12....................<8.0 Pediatrics: 0-6..................... 7.5-8.5 [employer]. Diabetes Care 33(S1)Apr 2009 Performed By: #### 4 548-4 #### ZUNIGA VIRGINIE ([id number]) [facility] ([facility]) [address] [place] [address] Hemoglobin A1c/Hemoglobin.to yaniv 08-07-2023 HbA1c (Bld) [Mass fraction] 6.0 % High see below [facility] Comment on above: Order Comment: Diagn osis of Diabetes-Adults Non-Diabetic: < or = 5.6% Increased risk for developing diabetes: 5.7-6.4% Diagnostic of diabetes: > or = 6.5% Monitoring of Diabetes Age (y)....................... Therapeutic Goal (%) Adults: >18.........................<7.0 Pediatrics: 13-18...................<7.5 Pediatrics: 7-12....................<8.0 Pediatrics: 0-6..................... 7.5-8.5 [place] [employer]. Diabetes Care 33(S1), Apr 2009 Performed By: #### 4 548-4 #### EFRAIN RACHEL ([id number]) [facility] ([facility]) [address] [place] [address] Lipid 1996 panelon 4 Cholesterol [Mass/Vol] 224 mg/dL High 0-199 [facility] Comment on above: Result Comment: Age Desirable Borderline High High 0-19 Y 0 - 169 170 - 199 >/= 200 20-24 Y 0 - 189 190 - 224 >/= 225 >24 Y 0 - 199 200 - 239 >/= 240 All ranges are based on fasting samples. Specific therapeutic targets will vary based on patient-specific cardiac risk. Pediatric guidelines reference:Pediatrics 2011, 128(S5).Adult guidelines reference: NCEP ATPIII Guidelines,JULIANN 2001, 258:2486-97 Venipuncture immediately after or during the administration of Metamizole may lead to falsely low results. Testing should be performed immediately prior to Metamizole dosing. Performed By: #### 2 4331-1 #### EFRAIN RACHEL ([id number]) [facility] ([facility]) [facility] [place] [address] Cholesterol in HDL [Mass/Vol] 60.0 mg/dL Normal [facility] Comment on above: Result Comment: Age Very Low Low Normal High 0-19 Y < 35 < 40 40-45 ---- 20-24 Y ---- < 40 >45 ---- >24 Y ---- < 40 40-60 >60 Performed By: #### 2 4331-1 #### EFRAIN RACHEL ([id number]) [facility] ([facility]) [facility] [place] [address] Cholesterol in LDL [Mass/Vol] 124 mg/dL High <=99 [facility] Comment on above: Result Comment: Near Borderline AGE Desirable Optimal High High Very High 0-19 Y 0 - 109 --- 110-129 >/= 130 ---- 20-24 Y 0 - 119 --- 120-159 >/= 160 ---- >24 Y 0 - 99 100-129 130-159 160-189 >/=190 Performed By: #### 2 4331-1 #### EFRAIN RACHEL ([id number]) [facility] ([facility]) [address] [place] [address] 79099 Cholesterol in VLDL [Mass/Vol] 40 mg/dL Normal 0-40 [facility] Comment on above: Performed By: #### 2 4331-1 #### EFRAIN RACHEL ([id number]) [facility] ([facility]) [address] [place] [address] 69797 CHOLESTEROL/HDL RATIO 3.7 Normal [facility] Comment on above: Result Comment: Ref Values Desirable < 3.4 High Risk > 5.0 Performed By: #### 2 4331-1 #### EFRAIN RACHEL ([id number]) [facility] ([facility]) [address] [place] [address] 07884 NON HDL CHOLESTEROL 164 mg/dL High 0-149 [facility] Comment on above: Result Comment: Age Desirable Borderline High High Very High 0-19 Y 0 - 119 120 - 144 >/= 145 >/= 160 20-24 Y 0 - 149 150 - 189 >/= 190 ---- >24 Y 30 mg/dL above LDL Cholesterol goal Performed By: #### 2 4331-1 #### EFRAIN RACHEL ([id number]) [facility] ([facility]) [address] [place] [address] 06880 Triglyceride [Mass/Vol] 199 mg/dL High 0-149 [facility] Comment on above: Result Comment: Age Desirable Borderline High High Very High 0 D-90 D 19 - 174 ---- ---- ---- 91 D- 9 Y 0 - 74 75 - 99 >/= 100 ---- 10-19 Y 0 - 89 90 - 129 >/= 130 ---- 20-24 Y 0 - 114 115 - 149 >/= 150 ---- >24 Y 0 - 149 150 - 199 200- 499 >/= 500 Venipuncture immediately after or during the administration of Metamizole may lead to falsely low results. Testing should be performed immediately prior to Metamizole dosing. Performed By: #### 2 4331-1 #### EFRAIN HUYNHLI ([id number]) [facility] ([facility]) [address] [place] [id number] ANKLE, COMPLETE, MIN 3 VIEWS on 11-13-2022 ANKLE, COMPLETE, MIN 3 VIEWS Patient Name: JENNY WAKEFIELD STUDY: ANKLE, COMPLETE, MIN 3 VIEWS; FOOT; COMPLETE, MIN 3 VIEWS; Left; 11/13/2022 10:33 am; 11/13/2022 10:36 am INDICATION: lateral malleolus and mid foot pain x 1 week s/p inversion injury . COMPARISON: None. ACCESSION NUMBER(S): [id number]; [id number] ORDERING CLINICIAN: BRIAN ALBERTO FINDINGS: Three views left foot, three views left ankle: There is no fracture or dislocation. There is a smooth well corticated ossification near the fibular tip consistent with remote injury or accessory ossicle. There is mild spurring of the medial malleolus. The ankle mortise is intact. IMPRESSION: No acute bony abnormality left foot and left ankle. MACRO: None Electronically signed by: EWA BEE MD [facility] FOOT COMPLETE, MIN 3 VIEWSon 11-13-2022 FOOT COMPLETE, MIN 3 VIEWS Patient Name: JENNY WAKEFIELD STUDY: ANKLE, COMPLETE, MIN 3 VIEWS; FOOT; COMPLETE, MIN 3 VIEWS; Left; 11/13/2022 10:33 am; 11/13/2022 10:36 am INDICATION: lateral malleolus and mid foot pain x 1 week s/p inversion injury . COMPARISON: None. ACCESSION NUMBER(S): [id number]; [id number] ORDERING CLINICIAN: BRIAN ALBERTO FINDINGS: Three views left foot, three views left ankle: There is no fracture or dislocation. There is a smooth well corticated ossification near the fibular tip consistent with remote injury or accessory ossicle. There is mild spurring of the medial malleolus. The ankle mortise is intact. IMPRESSION: No acute bony abnormality left foot and left ankle. MACRO: None Electronically signed by: EWA BEE MD [facility] Provider Note - ED v3on 08-0 Provider Note - ED v3 Provider Note: Results/Vital Signs: Pediatric Clinical Scoring (JINA) is no recent JINA charted on this account Chart Review: ED NOTES ED NOTES: Patient presents for evaluation of left ankle and foot pain [place] States she has intermittently worn GALI wrap and otc pain remedies. No prior injuries. HISTORY OF PRESENTING ILLNESS JENNY is a 57 year old Female and was seen by me at 13-Nov-2022 10:01. Triage Information: Most recent Vital Sign Value Date PAST MEDICAL HISTORY ALLERGIES/INTOLERANCE S: No Known Allergies HEALTH HISTORY: No documented data. OUTPATIENT MEDICATIONS: Home Medications Review Status for Reconciliation: Complete Med Status: Patient Currently Takes Medications Drug Name: Valtrex Instructions: null Drug Name: Flonase Instructions: null Drug Name: Claritin Instructions: null SIGNIFICANT EVENTS: No documented data. HALL CLEANER: Is : no Is : no REVIEW OF SYSTEMS All other systems reviewed and are negative REVIEW OF SYSTEMS: Comments See HPI PHYSICAL EXAM CONSTITUTIONAL: Well appearing, well nourished, awake, alert, oriented to person, place, time/situation and in no apparent distress. MUSCULOSKELETAL: Left ankle ecchymosis, edema and decreased dorsiflexion/extensio n. Pain to lateral midfoot. 2+ dorsalis pedis and posterior tibialis. NEUROLOGICAL: Alert and oriented, no focal deficits, no motor or sensory deficits. SKIN: Skin normal color for race, warm, dry and intact. No evidence of trauma. PSYCHIATRIC: Alert and oriented to person, place, time/situation. normal mood and affect. No apparent risk to self or others. CRITICAL CARE VITAL SIGNS: T PRBP SpO2O2(LPM) %FiO2 Method 13-Nov-2022 09:50:[id number]/80 98 MDM MDM/ED COURSE: Discussed Findings with: patient Data Reviewed: vital signs Treatment Plan: Xray L ankle and foot ordered. GALI wrap applied. Encouraged rest, ice 20 min on 20 min off. Patient's clinical presentation is otherwise unremarkable at this time. Patient is discharged with instructions to follow-up with primary care or seek emergency medical attention for worsening symptoms or any new concerns. DISPOSITION Diagnosis/Annotation: ED Dx Name:Injury of left ankle, initial encounter Code:S99.912A Disposition: discharged Type: home CONSULT CRITICAL CARE TIME Is this a critically ill patient: no Electronic Signatures: Brian Alberto (ELIGIBILITY EXAMINER-BOARDER MACHINE) (Signed 07-Aug-2023 11:05) Authored: ED Notes, HPI, PMH, ROS, PE, Results/Vital Signs, MDM/ED Course, Clinical Impression, Attestation, Chart Review, Scores Last Updated: 13-Nov-2022 11:05 by Brian Alberto (ELIGIBILITY EXAMINER-BOARDER MACHINE) [facility] Provider Note - ED v3on 03- Provider Note - ED v3 Provider Note: Chart Review: ED NOTES ED NOTES: Patient presents for evaluation of left eye redness and drainage that has been ongoing for the past week. Denies fever, n/v/d, nasal congestion, body aches, headache, abdominal pains, visual changes or any other associated symptoms or complaints. Pt states she has seasonal allergies and conjunctivitis frequently. No otc meds used for symptoms. HISTORY OF PRESENTING ILLNESS JENNY is a 56 year old Female and was seen by me at 04-Jul-2022 17:01. Triage Information: Most recent Vital Sign Value Date PAST MEDICAL HISTORY ALLERGIES/INTOLERANCE S: No Known Allergies HEALTH HISTORY: No documented data. OUTPATIENT MEDICATIONS: Home Medications Review Status for Reconciliation: Complete Med Status: Patient Currently Takes Medications Drug Name: Valtrex Instructions: null Drug Name: Flonase Instructions: null Drug Name: ofloxacin 0.3% ophthalmic solution Instructions: 1 drop(s) in left eye 3 times daily x 7 days Drug Name: erythromycin 0.5% ophthalmic ointment Instructions: 1 application in left eye 3 times a day x 7 days SIGNIFICANT EVENTS: No documented data. HALL CLEANER: Is : no Is : no REVIEW OF SYSTEMS All other systems reviewed and are negative REVIEW OF SYSTEMS: Comments See HPI PHYSICAL EXAM CONSTITUTIONAL: Well appearing, well nourished, awake, alert, oriented to person, place, time/situation and in no apparent distress. HENMT: Airway patent, ears with clear tympanic membranes bilaterally. Nasal mucosa clear. Mouth with normal mucosa. Throat has no vesicles, no oropharyngeal exudates and uvula is midline. Face with no lymph node enlargement. EYES: R eye clear, L conjunctiva erythematous with purulent drainage, pupils equal, round and reactive to light. CARDIOVASCULAR: Normal rate, regular rhythm. Heart sounds S1, S2. No murmurs, rubs or gallops. PMI non-displaced. RESPIRATORY: Breath sounds clear and equal bilaterally. NEUROLOGICAL: Alert and oriented, no focal deficits, no motor or sensory deficits. SKIN: Skin normal color for race, warm, dry and intact. No evidence of trauma. PSYCHIATRIC: Alert and oriented to person, place, time/situation. normal mood and affect. No apparent risk to self or others. CRITICAL CARE VITAL SIGNS: T PRBP SpO2O2(LPM) %FiO2 Method 04-Jul-2022 16:49:[id number]/78 98 MDM MDM/ED COURSE: Discussed Findings with: patient Data Reviewed: vital signs Treatment Plan: Rx ofloxacin eye drops and erythromycin ointment. Encouraged pt to continue otc cold remedies PRN, push by mouth fluids and rest. Patient's clinical presentation is otherwise unremarkable at this time. Patient is discharged with instructions to follow-up with primary care or seek emergency medical attention for worsening symptoms or any new concerns. DISPOSITION Diagnosis/Annotation: ED Dx Name:Acute bacterial conjunctivitis of left eye Code:H10.32 Disposition: discharged Type: home CONSULT CRITICAL CARE TIME Is this a critically ill patient: no Electronic Signatures: Brian Alberto (ELIGIBILITY EXAMINER-BOARDER MACHINE) (Signed 04-Jul-2022 17:44) Authored: ED Notes, HPI, PMH, ROS, PE, Results/Vital Signs, MDM/ED Course, Clinical Impression, Attestation, Chart Review, Scores Last Updated: 04-Jul-2022 17:44 by Brian Alberto (ELIGIBILITY EXAMINER-BOARDER MACHINE) [facility] Provider Note - ED v3on 04-09 Provider Note - ED v3 Provider Note: Chart Review: ED NOTES ED NOTES: Presents for evaluation of URI. Symptoms including cough, congestion, bilateral eye drainage, malaise, and headache have been present for 1 month and refractory to OTC meds. No fever, chills, loss of taste/smell, nausea, vomiting, abdominal pain, CP, or SOB. No exacerbating factors. No known COVID 19/flu exposure. HISTORY OF PRESENTING ILLNESS JENNY is a 56 year old Female and was seen by me at 25-Apr-2022 15:53. Triage Information: Most recent Vital Sign Value Date PAST MEDICAL HISTORY ALLERGIES/INTOLERANCE S: No Known Allergies HEALTH HISTORY: No documented data. OUTPATIENT MEDICATIONS: Home Medications Review Status for Reconciliation: Complete Med Status: Patient Currently Takes Medications Drug Name: Valtrex Instructions: null Drug Name: amoxicillin-clavulana te 875 mg-125 mg oral tablet Instructions: 875 milligram(s) orally 2 times a day SIGNIFICANT EVENTS: No documented data. HALL CLEANER: Is : no Is : no REVIEW OF SYSTEMS All other systems reviewed and are negative REVIEW OF SYSTEMS: Comments SEe HPI PHYSICAL EXAM CONSTITUTIONAL: Dull nasally voice, well nourished, awake, alert, oriented to person, place, time/situation and in no apparent distress. HENMT: Airway patent, ears with clear tympanic membranes bilaterally. Nasal mucosa clear. Mouth with normal mucosa. Throat has no vesicles, no oropharyngeal exudates and uvula is midline. Face with maxillary sinus tenderness bilaterally. No lymphadenopathy. EYES: Clear bilaterally, pupils equal, round and reactive to light. CARDIOVASCULAR: Normal rate, regular rhythm. Heart sounds S1, S2. No murmurs, rubs or gallops. PMI non-displaced. RESPIRATORY: Breath sounds clear and equal bilaterally. NEUROLOGICAL: Alert and oriented, no focal deficits, no motor or sensory deficits. SKIN: Skin normal color for race, warm, dry and intact. No evidence of trauma. PSYCHIATRIC: Alert and oriented to person, place, time/situation. normal mood and affect. No apparent risk to self or others. CRITICAL CARE VITAL SIGNS: T PRBP SpO2O2(LPM) %FiO2 Method 25-Apr-2022 15:53:[id number]/ 84 95 MDM MDM/ED COURSE: Discussed Findings with: patient Data Reviewed: vital signs Treatment Plan: Rx Augmentin. Encouraged pt to continue otc cold remedies PRN, push by mouth fluids and rest. Patient's clinical presentation is otherwise unremarkable at this time. Patient is discharged with instructions to follow-up with primary care or seek emergency medical attention for worsening symptoms or any new concerns. DISPOSITION Diagnosis/Annotation: ED Dx Name:Acute sinusitis Code:J01.90 Disposition: discharged Type: home CONSULT CRITICAL CARE TIME Is this a critically ill patient: no Electronic Signatures: Brian Alberto (ELIGIBILITY EXAMINER-BOARDER MACHINE) (Signed 25-Apr-2022 16:09) Authored: ED Notes, HPI, PMH, ROS, PE, Results/Vital Signs, MDM/ED Course, Clinical Impression, Attestation, Chart Review, Scores Last Updated: 25-Apr-2022 16:09 by Brian Alberto (ELIGIBILITY EXAMINER-BOARDER MACHINE) Normal [facility] Cervical or vagninal specime n microscopic examination by cytology stain (reported ason 07-05-2021 Cytology report Cyto stain Doc (Cvx/Vag) Comment [facility] Work Phone: Comment on above: The Pap smear is a s creening test designed to aid in thedetection of premalignant and malignant conditions of theuterine cervix. It is not a diagnostic procedure andshould not be used as the sole means of detecting cervicalcancer. Both false-positive and false-negative reports dooccur. Detection in cervical specim en of any of human papilloma virus (HPV) 16, 18, 31, 33,on 07-05-2021 HPV 16+18+31+33+35+39+ 45+51+52+56+58+59+ 66+68 DNA Probe+sig amp Ql (Cvx) Negative Negative [facility] Work Phone: Comment on above: This nucleic acid am plification test detects fourteen high- risk HPV types (16,18,31,33,35,39,45,51,52,56,58,59,66,68)without differentiation.Performed at: - [facility] [id number] Director: Shonna Og MD, Phone: [phone] at: = - [facility] [address] [id number] Director: Shonna Og MD, Phone: [phone] Laboratory - Cytologyon 06-08 [place] Cyto stain Nom (Cvx/Vag) [ID] Comment [facility] Work Phone: Comment on above: Haile Lamas totechnologist (ASCP) Laboratory - Miscellaneous t estson 07-05-2021 Service comment (Unsp spec) [Interp] Comment [facility] Work Phone: Comment on above: This liquid based Th inPrep(R) pap test was screened withthe use of an image guided system. Service comment (Unsp spec) [Interp] . [facility] Work Phone: No Panel Informationon 07-05 Pathology report final diagnosis Narrative Comment [facility] Work Phone: Comment on above: NEGATIVE FOR INTRAEP ITHELIAL LESION OR MALIGNANCY. Insulin Lvlon 11-23-2018 Insulin Lvl 14.6 mcIU/mL Normal 2.6-24.9 [facility] Comment on above: Result Comment: Perf ormed At: [facility] [address] [id number] Raymundo Qureshi PhD Ph:[phone] Performed By: #### 2 [id number] #### DRE [facility] [address] [place] [address] Glu Fastingon 11-22-2018 Glucose [Mass/Vol] 105 mg/dL High 70-99 [facility] Comment on above: Performed By: #### 2 [id number] #### [facility] [employer] [address] [place] [address] [id number] 11-22-2018 HbA1c (Bld) [Mass fraction] 5.9 % Normal 4.0-6.3 [facility] Comment on above: Performed By: #### 2 [id number] #### [facility] [employer] [address] [place] [address] Lipid Profileon 11-22-2018 Cholesterol [Mass/Vol] 197 mg/dL Normal 0-199 [facility] Comment on above: Performed By: #### 3 [id number] #### [facility] [address] [place] [address] Cholesterol in HDL [Mass/Vol] 59 mg/dL Normal 40-60 [facility] Comment on above: Performed By: #### 3 [id number] #### [facility] [employer] [address] [place] [address] Cholesterol in LDL [Mass/Vol] 119 mg/dL Normal 0-130 [facility] Comment on above: Performed By: #### 3 [id number] #### [facility] [employer] [address] [place] [address] Cholesterol in VLDL [Mass/Vol] 19 mg/dL Normal 0-40 [facility] Comment on above: Performed By: #### 3 [id number] #### [facility] [employer] [address] [place] [address] Triglyceride [Mass/Vol] 96 mg/dL Normal 0-149 [facility] Comment on above: Result Comment: AGE DESIRABLE BORDERLINE HIGH 91 D - 9 Y 0 - 74 75 - 99 > 100 10 - 19 Y 0 - 89 90 - 129 > 130 20 - 24 Y 0 - 114 115 - 149 > 150 > 25 0 - 149 150 - 199 200 - 499 Performed By: #### 3 [id number] #### [facility] [employer] [address] [place] [address] TSHon 11-22-2018 TSH Qn 2.06 mcIU/mL Normal 0.30-5.60 [facility] Comment on above: Performed By: #### 2 [id number] #### [facility] [employer] [address] [place] [address] Auto Diffon 04-05-2018 Basophils (Bld) [#/Vol] 0.0 E3/mcL Normal 0.0-0.2 [facility] Comment on above: Order Comment: Order Added by Discern Expert. Performed By: #### 2 [id number] #### [facility] [employer] [address] [place] [address] Basophils/100 WBC (Bld) 0.6 % Normal 0.0-2.0 [facility] Comment on above: Order Comment: Order Added by Discern Expert. Performed By: #### 2 [id number] #### [facility] [employer] [address] [place] [address] Eos Absolute 0.1 E3/mcL Normal 0.0-0.7 [facility] Comment on above: Order Comment: Order Added by Discern Expert. Performed By: #### 2 [id number] #### [facility] [employer] [address] [place] [address] Eosinophils/100 WBC (Bld) 1.7 % Normal 0.0-11.0 [facility] Comment on above: Order Comment: Order Added by Discern Expert. Performed By: #### 2 [id number] #### [facility] [employer] [address] [place] [address] Lymphocytes (Bld) [#/Vol] 2.4 E3/mcL Normal 1.2-3.4 [facility] Comment on above: Order Comment: Order Added by Discern Expert. Performed By: #### 2 [id number] #### [facility] [employer] [address] [place] [address] Lymphocytes/100 WBC (Bld) 31.5 % Normal 20.0-55.0 [facility] Comment on above: Order Comment: Order Added by Discern Expert. Performed By: #### 2 [id number] #### [facility] [employer] [address] [place] [address] Peach Absolute 0.5 E3/mcL Normal 0.0-0.7 [facility] Comment on above: Order Comment: Order Added by Discern Expert. Performed By: #### 2 [id number] #### [facility] [employer] [address] [place] [address] Monocytes/100 WBC (Bld) 6.8 % Normal 0.0-10.0 [facility] Comment on above: Order Comment: Order Added by Discern Expert. Performed By: #### 2 [id number] #### [facility] [address] [place] [address] Neutro Absolute 4.5 E3/mcL Normal 1.4-6.5 [facility] Comment on above: Order Comment: Order Added by Discern Expert. Performed By: #### 2 [id number] #### [facility] [address] [place] [address] Neutro Auto 59.4 % Normal 37.0-75.0 [facility] Comment on above: Order Comment: Order Added by Discern Expert. Performed By: #### 2 [id number] #### [facility] [employer] [address] [place] [address] BMPon 04-05-2018 Anion gap [Moles/Vol] 10 mmol/L Normal 10-20 [facility] Comment on above: Performed By: #### 2 [id number] #### [employer] [address] [place] [address] Calcium [Mass/Vol] 9.7 mg/dL Normal 8.6-10.3 [facility] Comment on above: Performed By: #### 2 [id number] #### [employer] [address] [place] [address] Chloride [Moles/Vol] 105 mmol/L Normal 98-107 [facility] Comment on above: Performed By: #### 2 [id number] #### [employer] [address] [place] [address] CO2 [Moles/Vol] 27.0 mmol/L Normal 21.0-32.0 [facility] Comment on above: Performed By: #### 2 [id number] #### [employer] [address] [place] [address] Creatinine [Mass/Vol] 0.8 mg/dL Normal 0.5-1.1 [facility] Comment on above: Performed By: #### 2 [id number] #### [employer] [address] [place] [address] Glucose [Mass/Vol] 131 mg/dL High 70-99 [facility] Comment on above: Performed By: #### 2 260399 #### [employer] [address] [place] [address] Potassium [Moles/Vol] 3.9 mmol/L Normal 3.5-5.3 [facility] Comment on above: Performed By: #### 2 [id number] #### [employer] [address] [place] [address] Sodium [Moles/Vol] 138 mmol/L Normal 136-145 [facility] Comment on above: Performed By: #### 2 [id number] #### [employer] [address] [place] [address] Urea nitrogen [Mass/Vol] 20 mg/dL Normal 6-23 [facility] Comment on above: Performed By: #### 2 674954 #### [employer] [address] [place] [address] Urea nitrogen/Creatinin e [Mass ratio] 25.0 ratio Normal 5.4-30.0 [facility] Comment on above: Performed By: #### 2 [id number] #### [employer] [address] [place] [address] CBC w/ Auto Diffon 8 Erythrocyte distribution width (RBC) [Ratio] 13.2 % Normal 11.5-14.5 [facility] Comment on above: Performed By: #### 2 [id number] #### [facility] [employer] [address] [place] [address] Hematocrit (Bld) [Volume fraction] 39.4 % Normal 36.0-48.0 [facility] Comment on above: Performed By: #### 2 [id number] #### [facility] [employer] [address] [place] [address] Hemoglobin (Bld) [Mass/Vol] 13.1 g/dL Normal 12.0-16.0 [facility] Comment on above: Performed By: #### 2 701055 #### [facility] [employer] [address] [place] [address] MCH (RBC) [Entitic mass] 30.6 pg Normal 27.0-31.0 [facility] Comment on above: Performed By: #### 2 [id number] #### [facility] [employer] [address] [place] [address] MCHC (RBC) [Mass/Vol] 33.2 g/dL Normal 33.0-37.0 [facility] Comment on above: Performed By: #### 2 552122 #### [facility] [address] [place] [address] MCV (RBC) [Entitic vol] 92.1 fL Normal 78.0-100.0 [facility] Comment on above: Performed By: #### 2 [id number] #### [facility] [employer] [address] [place] [address] Platelet mean volume (Bld) [Entitic vol] 8.7 fL Normal 7.4-11.0 [facility] Comment on above: Performed By: #### 2 [id number] #### [facility] [address] [place] [address] Platelets (Bld) [#/Vol] 279 E3/mcL Normal 130-400 [facility] Comment on above: Performed By: #### 2 [id number] #### [facility] [address] [place] [address] RBC (Bld) [#/Vol] 4.28 E6/mcL Normal 3.90-5.40 [facility] Comment on above: Performed By: #### 2 399401 #### [facility] [address] [place] [address] WBC (Bld) [#/Vol] 7.6 E3/mcL Normal 3.6-11.0 [facility] Comment on above: Performed By: #### 2 695227 #### [facility] [employer] [facility] [place] [address] Magnesiumon 04-05-2018 Magnesium [Mass/Vol] 2.0 Int._Unit/L Normal 1.6-2.4 [facility] Comment on above: Performed By: #### 2 [id number] #### [employer] [facility] [place] [address] Troponin-Ion 04-05-2018 Troponin I.cardiac [Mass/Vol] ng/mL Normal .00-.03 [facility] Comment on above: Performed By: #### 2 [id number] #### [facility] [employer] [facility] [place] [address] XR Chest AP Portableon 04-05 XR Chest AP Portable Exam Date/Time: 04/05/2018 16:06 EST Reason for Exam: Chest pain Report STUDY: XR Chest AP Portable; 04/05/2018 4:06 pm INDICATION: Chest pain. COMPARISON: None. ACCESSION NUMBER(S): [id number] ORDERING CLINICIAN: Jl Ludwig TECHNIQUE: Single AP portable view of the chest was obtained. FINDINGS: MEDIASTINUM/ LUNGS/ KAYE: No cardiomegaly, vascular congestion, or pleural effusion. Both lungs are well aerated and clear. No pneumothorax. No tracheal deviation. No abnormal hilar fullness or gross mass on either side. BONES: No lytic or blastic destructive bone lesion. UPPER ABDOMEN: Grossly intact. IMPRESSION: Negative exam. FINAL REPORT Dictated: 04/05/2018 4:30 pm Omari Moreland MD Signed (Electronic Signature): 04/05/2018 4:30 pm Signed by: Omari Moreland MD Technologist: HLL Normal [facility] eGFRon 04-05-2018 GFR/1.73 sq M predicted among non-blacks MDRD (S/P/Bld) [Vol rate/Area] mL/min/{1.73_m2} Normal [facility] Comment on above: Order Comment: Order added by Discern Expert. Performed By: #### 1 [id number] #### [facility] [address] [place] [address] MRI Spine Cervical w/o Contr santiago 04-03-2018 MRI Spine Cervical w/o Contrast Exam Date/Time: 04/03/2018 13:35 EST Reason for Exam: NECK PAIN RADIATING DOWN LEFT ARM Report STUDY: MRI Spine Cervical w/o Contrast; 04/03/2018 1:35 pm INDICATION: NECK PAIN RADIATING DOWN LEFT ARM. COMPARISON: None. ACCESSION NUMBER(S): [id number] ORDERING CLINICIAN: Mario Simms TECHNIQUE: The cervical spine was studied in the sagittal and axial planes utilizing T1 and T2 weighted images. FINDINGS: The marrow signal in vertebral body height are normal. The craniovertebral junction is normal. The cord is normal in size and signal. There is no evidence of bulging or herniated disc. There is no evidence of canal or foraminal narrowing. The visualized paraspinal soft tissues within the neck are normal. IMPRESSION: MRI of the cervical spine is within normal limits. [place]AMIN[place] [facility] [place] Dictated: 04/03/2018 1:56 pm Gagandeep Santana MD Signed (Electronic Signature): 04/03/2018 1:56 pm Signed by: Gagandeep Santana MD Technologist: SKYLA [facility] PROBING OF NASOLACRIMAL DUCT , WITH OR WITHOUT IRRIGATION [facility] Vital Signs Date Time Vital Sign Value Performing Clinician Humberto hook 08-12-2024 14:37-0400 Body height 157 cm Jenae Costa APRN.CNP Work Phone: [facility] 08-12-2024 14:37-0400 Body mass index (BMI) [Ratio] 30.73 kg/m2 Jenae Costa APRN.CNP Work Phone: [facility] 08-12-2024 14:37-0400 Body weight 75.75 kg Jenae Costa APRN.CNP Work Phone: [facility] 08-12-2024 14:37-0400 Diastolic blood pressure 86 mm[Hg] Jenae Costa APRN.CNP Work Phone: [facility] 08-12-2024 14:37-0400 Systolic blood pressure 132 mm[Hg] Jenae Costa APRN.BOARDER MACHINE Work Phone: [facility] 10-18-2023 12:36-0400 Body height 160 cm Nate Garcia ELIGIBILITY EXAMINER-BOARDER MACHINE Work Phone: [facility] 10-18-2023 12:36-0400 Body mass index (BMI) [Ratio] 28.34 kg/m2 Nate Garcia ELIGIBILITY EXAMINER-BOARDER MACHINE Work Phone: [phone] [place] [address] 10-18-2023 12:36-0400 Body temperature 98.29 [degF] Nate Garcia ELIGIBILITY EXAMINER-BOARDER MACHINE Work Phone: [phone] [address] 10-18-2023 12:36-0400 Body weight 72.58 kg Nate Garcia ELIGIBILITY EXAMINER-BOARDER MACHINE Work Phone: [phone])[phone] [place] [address] 10-18-2023 12:36-0400 Diastolic blood pressure 81 mm[Hg] Nate Garcia ELIGIBILITY EXAMINER-BOARDER MACHINE Work Phone: [facility] 10-18-2023 12:36-0400 Heart rate 77 /min Nate Garcia ELIGIBILITY EXAMINER-BOARDER MACHINE Work Phone: [facility] 10-18-2023 12:36-0400 Respiratory rate 12 /min Nate Garcia ELIGIBILITY EXAMINER-BOARDER MACHINE Work Phone: [facility] 10-18-2023 12:36-0400 SaO2% (BldA) [Mass fraction] 94 % Nate Garcia ELIGIBILITY EXAMINER-BOARDER MACHINE Work Phone: [facility] 10-18-2023 12:36-0400 Systolic blood pressure 117 mm[Hg] Nate Garcia ELIGIBILITY EXAMINER-BOARDER MACHINE Work Phone: [facility] 08-13-2023 14:19-0400 Body height 157.5 cm Lubna Velazquez MD Work Phone: [facility] 08-13-2023 14:19-0400 Body mass index (BMI) [Ratio] 29.08 kg/m2 Lubna Velazquez MD Work Phone: [facility] 08-13-2023 14:19-0400 Body weight 72.12 kg Lubna Velazquez MD Work Phone: [facility] 08-07-2023 13:47-0400 Body height 160 cm Lexie Covarrubias MD Work Phone: [facility] 08-07-2023 13:47-0400 Body mass index (BMI) [Ratio] 28.22 kg/m2 Lexie Covarrubias MD Work Phone: [facility] 08-07-2023 13:47-0400 Body weight 72.26 kg Lexie Covarrubias MD Work Phone: [facility] 08-07-2023 13:47-0400 Diastolic blood pressure 76 mm[Hg] Lexie Covarrubias MD Work Phone: [facility] 08-07-2023 13:47-0400 Heart rate 74 /min Lexie Covarrubias MD Work Phone: [facility] 08-07-2023 13:47-0400 SaO2% (BldA) [Mass fraction] 96 % Lexie Covarrubias MD Work Phone: [facility] 08-07-2023 13:47-0400 Systolic blood pressure 124 mm[Hg] Lexie Covarrubias MD Work Phone: [facility] 06-21-2023 17:22-0400 Body height 160 cm Brian Alberto APRN-BOARDER MACHINE Work Phone: [facility] 06-21-2023 17:22-0400 Body mass index (BMI) [Ratio] 27.46 kg/m2 Brian Alberto APRN-BOARDER MACHINE Work Phone: [facility] 06-21-2023 17:22-0400 Body temperature 97.7 [degF] Brian Alberto ELIGIBILITY EXAMINER-BOARDER MACHINE Work Phone: [facility] 06-21-2023 17:22-0400 Body weight 70.31 kg Brian Alberto ELIGIBILITY EXAMINER-BOARDER MACHINE Work Phone: [facility] 06-21-2023 17:22-0400 Diastolic blood pressure 88 mm[Hg] Brian Alberto ELIGIBILITY EXAMINER-BOARDER MACHINE Work Phone: [facility] 06-21-2023 17:22-0400 Heart rate 65 /min Brian Alberto ELIGIBILITY EXAMINER-BOARDER MACHINE Work Phone: [facility] 06-21-2023 17:22-0400 Respiratory rate 16 /min Brian Alberto ELIGIBILITY EXAMINER-BOARDER MACHINE Work Phone: [facility] 06-21-2023 17:22-0400 SaO2% (BldA) [Mass fraction] 98 % Brian Alberto ELIGIBILITY EXAMINER-BOARDER MACHINE Work Phone: [facility] 06-21-2023 17:22-0400 Systolic blood pressure 134 mm[Hg] Brian Alberto ELIGIBILITY EXAMINER-BOARDER MACHINE Work Phone: [facility] 11-13-2022 11:50-0400 Body height 159 cm Miryam Zapata Other Phone: [facility] 11-13-2022 11:50-0400 Body temperature 97.34 [degF] Miryam Zapata Other Phone: [facility] 11-13-2022 11:50-0400 Diastolic blood pressure 80 mm[Hg] Miryam Zapata Other Phone: [facility] 11-13-2022 11:50-0400 Heart rate 68 /min Miryam Zapata Other Phone: [facility] 11-13-2022 11:50-0400 SaO2% (BldA) [Mass fraction] 98 % Miryam Zapata Other Phone: [facility] 11-13-2022 11:50-0400 Systolic blood pressure 128 mm[Hg] Christalfredito Zapata Other Phone: [facility] 07-20-2021 16:34-0400 Diastolic blood pressure 74 mm[Hg] Ilan Collier MD Work Phone: [facility] 07-20-2021 16:34-0400 Heart rate 83 /min Ilan Collier MD Work Phone: [facility] 07-20-2021 16:34-0400 Systolic blood pressure 115 mm[Hg] Ilan Collier MD Work Phone: [facility] Encounters Encounter Date Encounter Type Care Provider Facility Start: 11-07-2024 ambulatory Jenae Costa Facility:[facility] Start: 08-12-2024 End: 08-12-2024 Patient encounter procedure Jenae Costa APRN.BOARDER MACHINE Work Phone: OB/Gynecology Comment on above: Encounter for gyneco logical examination (general) (routine) without abnormal findings (Primary Dx); Vaginal dryness, menopausal; Recurrent genital herpes; Unintended weight gain; Encounter for screening mammogram for breast cancer Start: 08-12-2024 End: 08-12-2024 Patient encounter status Jenae Costa APRN.BOARDER MACHINE Work Phone: [facility] Start: 08-12-2024 End: 08-12-2024 ambulatory EDNA DUCKWORTH Facility:[facility] Start: 08-12-2024 Encounter for gynecological examination (general) (routine) without abnormal findings JENAE COSTA [facility] Start: 12-17-2023 End: 12-18-2023 Refill Lubna Velazquez MD Work Phone: OB/Gynecology Comment on above: Refill Request Start: 12-15-2023 End: 12-17-2023 Refill Lubna Velazquez MD Work Phone: OB/Gynecology Comment on above: Refill Request Start: 10-18-2023 End: 10-18-2023 ambulatory LEXIE [facility] Start: 10-18-2023 End: 10-18-2023 Patient encounter procedure Nate Zelaya ELIGIBILITY EXAMINER-BOARDER MACHINE Work Phone: [facility] Comment on above: Acute sinusitis, rec urrence not specified, unspecified location (Primary Dx) Start: 08-13-2023 End: 08-13-2023 Patient encounter status Lubna Velazquez MD Work Phone: [facility] Start: 08-13-2023 End: 08-13-2023 Periodic preventive med est patient 40-64yrs Lubna Velazquez MD Work Phone: OB/Gynecology Comment on above: Encounter for gyneco logical examination (general) (routine) without abnormal findings (Primary Dx); Encounter for screening for malignant neoplasm of cervix; Special screening examination for human papillomavirus (HPV); Encounter for screening mammogram for malignant neoplasm of breast; Vaginal dryness, menopausal Start: 08-07-2023 End: 08-08-2023 ambulatory [facility] Start: 08-07-2023 End: 08-07-2023 Office outpatient new 45 minutes Lexie Covarrubias MD Work Phone: [facility] Comment on above: Rectal prolapse (Sindy fer Dx); Screen for colon cancer; Prediabetes; Screening, lipid; Screening, anemia, deficiency, iron; Need for prophylactic vaccination against diphtheria and tetanus Start: 08-07-2023 End: 08-07-2023 ambulatory [facility] Start: 06-21-2023 End: 06-21-2023 Patient encounter procedure Brian Alberto ELIGIBILITY EXAMINER-BOARDER MACHINE Work Phone: [facility] Comment on above: Blepharitis of left lower eyelid, unspecified type (Primary Dx) Start: 06-21-2023 End: 06-21-2023 ambulatory MIRYAM ZAPATA [facility] Start: 11-13-[address] Bossman Zapata Facility:[id number] Start: 11-13-2022 End: 11-13-2022 Emergency department patient visit Brian Alberto [facility] Start: 09-20-2022 End: 09-20-2022 ambulatory [facility] Work Phone: Start: 09-20-2022 End: 09-20-2022 [facility] Start: 07-04-2022 End: 07-04-2022 Emergency department patient visit Dr. Miryam Zapata Facility:[id number] Start: 07-04-2022 End: 07-04-2022 Patient encounter procedure Brian [facility] Start: 04-25-2022 End: 04-25-2022 Emergency department patient visit Brian [facility] Start: 08-19-2021 End: 08-19-2021 Patient encounter procedure [facility] Start: 08-10-2021 End: 08-10-2021 Patient encounter procedure Ilan Collier MD Work Phone: Ophthalmology Comment on above: Allergic conjunctivi tis of both eyes (Primary Dx); Seasonal allergic rhinitis due to pollen; 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 Start: 07-20-2021 End: 07-20-2021 Patient encounter procedure Ilan Collier MD Work Phone: Ophthalmology Comment on above: Allergic conjunctivi tis of both eyes (Primary Dx); Bilateral epiphora; Seasonal allergies Start: 07-06-2021 End: 07-06-2021 Patient encounter procedure Ilan Collier MD Work Phone: Ophthalmology Comment on above: Allergic conjunctivi tis of both eyes (Primary Dx); Seasonal allergies Start: 07-05-2021 End: 07-05-2021 Patient encounter procedure [facility]Laboratory, Specimen Start: 06-30-2021 Telephone encounter Ilan Collier MD Work Phone: Ophthalmology Comment on above: Patient Question Start: 04-05-2018 Patient encounter procedure Facility:[id number] Start: 04-03-2018 Patient encounter procedure Facility:[id number] Procedures Date Procedure Procedure Detail Performing Clinician Start: 08-13-2023 Microscopic observat ion [Identifier] in Cervix by Cyto stain Nate Zelaya APRN-BOARDER MACHINE Work Phone: Start: 08-07-2023 CBC W Auto Different ial panel - Blood LEXIE COVARRUBIAS Start: 08-07-2023 Comprehensive metabo lic 2000 panel - Serum or Plasma LEXIE COVARRUBIAS Start: 08-07-2023 Hemoglobin A1c/Hemoglobin.total in Blood LEXIE COVARRUBIAS Start: 08-07-2023 Lipid panel [facility] Start: 08-07-2023 TDAP VACCINE GREATER THAN OR EQUAL TO 7YO IM LEXIE COVARRUBIAS Start: 08-07-2023 Lipid 1996 panel - S chelsie or Plasma Lubna Velazquez MD Work Phone: Start: 09-20-2022 End: 09-20-2022 Screening mammography Start: 08-19-2021 Screening mammography Start: 07-20-2021 Probe nasolacrimal d uct w/wo irrigation Ilan Collier MD Work Phone: Start: 05-14-2020 Microscopic observat ion [Identifier] in Cervix by Cyto stain Brian Alberto APRN-BOARDER MACHINE Work Phone: Plan of Treatment Date Care Activity Detail Author Start: 08-06-2033 DTaP/Tdap/Td Vaccine s (2 - Td or Tdap) DTaP/Tdap/Td Vaccines (2 - Td or Tdap) [facility] Start: 08-06-2033 Urine microalbumin profile DTaP,Tdap,Td Vaccine (2 - Td or Tdap) [facility] Start: 08-12-2028 Screening for malign ant neoplasm of cervix Cervical Cancer Screening [facility] Start: 08-06-2028 Lipid panel [facility] Start: 08-12-2026 Screening for malign ant neoplasm of cervix [facility] Start: 08-06-2026 Diabetes mellitus screening Diabetes Screening [facility] Start: 08-06-2026 Diabetes Screening Diabetes Screenin g [facility] Start: 08-12-2025 End: 08-12-2025 Patient encounter procedure 08/12/2025 3:30 PM EDT Office Visit OB/Gynecology [address] [place], [place] [id number] Jenae Costa APRN.BOARDER MACHINE [address] [place], [place] [id number] annual OB/Gynecology Comment on above: annual Start: 12-08-2024 Influenza vaccination Influenz a Vaccine (Season Ended) [facility] Start: 10-24-2024 Screening for malign ant neoplasm of breast Mammogram Screening [facility] Start: 08-12-2024 End: 08-12-2024 Patient encounter procedure 08/12/2024 2:30 PM EDT Office Visit OB/Gynecology [address] [place] [address] Jenae Costa APRN.BOARDER MACHINE [address] [place] [address] Annual OB/Gynecology Comment on above: Annual Start: 08-06-2024 Hemoglobin A1c measurement Diabetes: Hemoglobin A1C [facility] Start: 02-07-2024 End: 02-07-2024 Patient encounter procedure 02/07/2024 1:40 PM EDT Office Visit [facility] [address] [place] [address] Lexie Covarrubias MD [address] [place] [address] [facility] Start: 12-09-2023 Covid-19 Vaccine ( season) Covid-19 Vaccine ( season) [facility] Start: 12-09-2023 Covid-19 Vaccine ( season) Covid-19 Vaccine ( season) [facility] Start: 12-09-2023 Influenza vaccination [facility] Start: 09-21-2023 Screening for malign ant neoplasm of breast Mammogram [facility] Start: 08-07-2023 End: 08-06-2024 Colonoscopy study Colonoscopy Screening; Average Risk Patient Endoscopy Routine Screen for colon cancer Expected: 08/07/2023, Expires: 08/06/2024 [facility] Service Area Work Phone: Comment on above: Expected: 08/07/2023 , Expires: 08/06/2024 Start: 08-07-2023 End: 08-06-2024 Comprehensive metabolic 2000 panel - Serum or Plasma [facility] Work Phone: Comment on above: Expected: 08/07/2023 (Approximate), Expires: 08/06/2024 Start: 08-07-2023 End: 08-06-2024 Hemoglobin A1c/Hemoglobin.total in Blood [facility] Work Phone: Comment on above: Expected: 08/07/2023 (Approximate), Expires: 08/06/2024 Start: 08-07-2023 End: 08-06-2024 Lipid 1996 panel - Serum or Plasma [facility] Work Phone: Comment on above: Expected: 08/07/2023 (Approximate), Expires: 08/06/2024 Start: 05-14-2023 Screening for malign ant neoplasm of cervix [facility] Start: 04-09-2023 Behavioral Health Screening Behavioral Health Screening [facility] Start: 12-08-2022 COVID-19 Vaccine ( season) COVID-19 Vaccine ( season) [facility] Start: 12-08-2022 Influenza vaccination Influenza Vacc ine (#1) [facility] Start: 12-08-2021 Influenza vaccination INFLUENZA (Sea son Ended) [facility] Start: 12-08-2020 Influenza vaccination INFLUENZA (#1) [facility] Start: 08-04-2017 Pneumococcal Vaccine : 50+ (1 of 1 - PCV) Pneumococcal Vaccine: 50+ (1 of 1 - PCV) [facility] Start: 08-04-2017 SHINGRIX VACCINE (1 of 2) SHINGRIX VACCINE (1 of 2) [facility] Start: 08-04-2017 Zoster Vaccines (1 o f 2) Zoster Vaccines (1 of 2) [facility] Start: 08-04-2012 COLOGUARD (FIT-DNA) COLOGUARD (FIT-D NA) [facility] Start: 08-04-2012 Colonoscopy COLONOSCOPY [facility] Start: 08-04-2012 COLORECTAL CANCER SCREENING COLORECTAL CANCER SCREENING [facility] Start: 08-04-[address] COLONOGRAPHY [facility] Start: 08-04-2012 DIABETES SCREEN DIABETES SCREEN [facility] Start: 08-04-2012 FECAL OCCULT BLOOD FECAL OCCULT BLOO D [facility] Start: 08-04-2012 LIPID SCREEN LIPID SCREEN [facility] Start: 08-04-2012 Screening for malign ant neoplasm of colon [facility] Start: 08-04-2012 SIGMOIDOSCOPY SIGMOIDOSCOPY [facility] Start: 2007 Mammography MAMMOGRAM [facility] Start: 2007 Screening for malign ant neoplasm of breast Mammogram Screening [facility] Start: 08-04-1997 HPV TESTING HPV TESTING [facility] Start: 08-04-1997 Screening for malign ant neoplasm of cervix HPV Testing [facility] Start: 08-04-1989 DTaP/Tdap/Td Vaccine s (1 - Tdap) DTaP/Tdap/Td Vaccines (1 - Tdap) [facility] Start: 08-04-1988 PAP TESTING PAP TESTING [facility] Start: 08-04-1988 Screening for malign ant neoplasm of cervix [facility] Start: 08-04-1986 Hepatitis B Vaccine (1 of 3 - 19+ 3-dose series) Hepatitis B Vaccine (1 of 3 - 19+ 3-dose series) [facility] Start: 08-04-1986 Hepatitis B Vaccines (1 of 3 - 19+ 3-dose series) Hepatitis B Vaccines (1 of 3 - 19+ 3-dose series) [facility] Start: 08-04-1986 Urine microalbumin profile DTAP,TDAP,TD (1 - Tdap) [facility] Start: 08-04-1985 Anxiety Screening Anxiety Screening [facility] Start: 08-04-1985 Depression Screening Depression Scre [facility] Start: 08-04-1985 Diabetes mellitus screening Diabetes Screening [facility] Start: 08-04-1985 HEPATITIS C SCREENING HEPATITIS C [facility] Start: 08-04-1985 Hepatitis C screening Hepatitis C [facility] Start: 08-04-1985 HIV SCREENING HIV SCREENING [facility] Start: 08-04-1985 HIV screening HIV Screening [facility] Start: 1979 Adult depression screening assessment DEPRESSION SCREENING [facility] Start: 08-04-1972 COVID-19 VACCINE (1) COVID-19 VACCIN E (1) [facility] Start: 08-04-1968 MMR Vaccines (1 of 1 - Standard series) MMR Vaccines (1 of 1 - Standard series) [facility] Start: 02-04-1968 COVID-19 Vaccine (#1) COVID-19 Vacci ne (#1) [facility] Start: 1967 Hemoglobin A1c measurement Diabetes: Hemoglobin A1C [facility] Start: 1967 Hepatitis B Vaccines (1 of 3 - 3-dose series) Hepatitis B Vaccines (1 of 3 - 3-dose series) [facility] Start: 1967 HIV screening HIV Screening [facility] Start: 1967 Lipid panel Lipid Panel [facility] Start: 1967 Screening for malign ant neoplasm of colon [facility] Start: 1967 Yearly Adult Physical Yearly Adult P hysical [facility] End: 09-11-2025 DBT Breast - bilateral screening THONY SCREENING W JOSE ALBERTO Radiology Routine Encounter for gynecological examination (general) (routine) without abnormal findings Encounter for screening mammogram for breast cancer 1 Occurrences starting 08/12/2024 until 09/11/2025 [facility] Work Phone: Comment on above: 1 Occurrences starti ng 08/12/2024 until 09/11/2025 End: 09-11-2024 MG Breast Screening THONY SCREENING Radiology Routine Encounter for screening mammogram for malignant neoplasm of breast 1 Occurrences starting 08/13/2023 until 09/11/2024 [facility] Work Phone: Comment on above: 1 Occurrences starti ng 08/13/2023 until 09/11/2024 PAP TEST PAP TEST Lab Rou ainsley Encounter for screening for malignant neoplasm of cervix Special screening examination for human papillomavirus (HPV) 08/13/2023 3:00 PM EDT [facility] Immunizations Immunization Date Immunization Notes Care Provider Fa cility 08-07-2023 tetanus toxoid, redu destiny diphtheria toxoid, and acellular pertussis vaccine, adsorbed Lexie Covarrubias MD Work Phone: [facility] Work Phone: Payers Date Payer Category Payer Self-pay [id number] 2022 [employer] Blue [facility] SS PPO [id number] 2022 Unknown 2020 Unknown [id number] 2008 Unknown [facility] [id number] 2008-Present [phone] [id number] [id number] 1967 Unknown [id number] 1967 Unknown [id number] 1967 Unknown [id number] 1967 Unknown [id number] 1967 Unknown [id number] .[id number] 1967 Unknown [id number] 1967 Unknown [id number] .[id number] 1967 Unknown [id number] .[id number] 1967 Unknown [id number] .[id number] 1967 Unknown [id number] Unknown [id number] Unknown [id number] Social History Date Type Detail Facility Start: 08-07-2023 End: 08-13-2023 Tobacco smoking status NHIS Ex-smoker [facility] Start: 07-06-2021 End: 08-12-2024 Alcohol intake Current non-drinker of alcohol (finding) [facility] Start: 1965 Sex Assigned At Not on file [facility] Start: 06-26-2021 End: 10-18-2023 Exposure to SARS-CoV-2 (event) Not sure [facility] Start: 1965 Sex Assigned At Female [facility] Tobacco smoking consumption unknown [facility] Start: 08-13-2023 End: 08-12-2024 Gender identity Not on file [facility] Work Phone: Start: 07-09-1983 End: 04-09-1999 History of tobacco use Current smoker [facility] Work Phone: Start: 07-09-1983 End: 04-09-1999 History of tobacco use Cigarette Smoker [facility] Work Phone: Start: 08-07-2023 End: 08-13-2023 Cigarettes smoked current (pack per day) - Reported 1 [facility] Work Phone: Start: 08-07-2023 End: 08-13-2023 Tobacco use and exposure Smokeless tobacco non-user [facility] Work Phone: Start: 08-07-2023 End: 10-18-2023 Alcoholic beverage intake Ex-drinker (finding) [facility] Work Phone: Start: 08-07-2023 Alcohol Comment rare [facility] Work Phone: Start: 07-03-2023 Gender identity Identifies as female gender (finding) [facility] Work Phone: National Score (1-10 0), lower number is lower risk 61 [facility] Clinical Notes 06-30-2021 to 08-12-2024 Patient InstructionsJenae Costa APRN.CNP - 08/12/2024 2:32 PM EDRADHA Victor - 10/18/2023 12:30 PM EDLubna Gutierrez MD - 08/13/2023 2:08 PM EDTPatient Instructions Note Date & Type Note Facility 08-12-2024 Instructions Jenae Costa APRN.CNP - 08/12/2024 3:18 PM EDT - Eat primarily whole foods. Limit carbs, especially processed carbs. Eat - Meat, vegetables and fruits with skin on if possible, eggs, cheese. - Do not drink your calories - 30 grams of protein for your first meal of the day decreases your hunger during the day by up to 40 %. Options include: Premier Protein or generic 30 gm protein 1 gm sugar or 5 eggs or 2-3 eggs and some unbreaded meat and/or cheese. No fruit, vegetables, bread, grain, yogurt, Smoothies, etc. - Walk for 15 minutes immediately after meal documented in this encounter [facility] 08-12-2024 Note HNO ID: [id number] Author: JENAE COSTA APRN.CNP Service: ? Author Type: Nurse Practitioner Type: Progress Notes Filed: 08/12/2024 18:31 Note Text: Correspondence Dictator offered: Patient declines. Jenny is a 59 year old who presents for an annual gynecologic exam without complaints. Postmenopausal: Yes since age 52 HRT use: Yes vaginal cream estrace Still get period: No Menopause symptoms: Hot flashes; Night sweats; Vaginal dryness - symptoms improving STD: genital HSV, no outbreaks Time with current partner: 37 years HPV vaccine: No; Last pap smear: 08/13/2023 normal HPV: 2023 negative History of abnormal pap:Yes, ASCUS HRHPV pos colposcopy Bothersome pelvic pain: No Last mammogram: 2023 normal [facility] History of abnormal mammogram: Yes axillary lymph nodes noted OB History Gravida2 Para2 Term0 Preterm0 AB0 Living3 SAB0 IAB0 Ectopic0 Multiple1 Live Births0 Comment: Twin girls 1 boy FAMILY HISTORY Problem Relation Age of Onset Macular Degen Paternal Grandmother Breast Cancer Paternal Aunt Breast Cancer Paternal Aunt Breast Cancer Paternal Aunt SOCIAL HISTORY Social History Tobacco Use Smoking status: Former Smokeless tobacco: Never Vaping Use Vaping status: Never Used Substance Use Topics Alcohol use: No Drug use: No REVIEW OF SYSTEMS Abdomen: No abdominal pain, nausea, vomiting, diarrhea, or constipation. No bloating, early satiety, indigestion, or increased flatulence. Bladder: No dysuria, gross hematuria, urinary frequency, urinary urgency, or incontinence Breast: No breast lumps, nipple d/c, overlying skin changes, redness or skin retraction Allergies and current medication updated:Yes SENSITIVE EXAM: The sensitive examination was discussed with the Patient or Patient's Authorized Crystal Gazer. As applicable, any other physician, advance practice provider, medical student, or other health professional student that will be observing or involved in the sensitive examination for educational or training purposes was discussed with the Patient or Authorized Crystal Gazer. The Patient or Authorized Crystal Gazer has agreed to proceed with the sensitive examination. (Sensitive examination includes inspection and/or palpation of the breasts, pelvis, prostate and anorectal regions). EXAM: BP 132/86 Ht 5' 1.811 (1.57m) Wt 167 lb (75.8kg) LMP 03/04/2008 BMI 30.73 kg/(m2). GENERAL: pleasant, female in no apparent distress HEENT: Normocephalic, atraumatic, mucus membranes moist, and no lesions NECK: Supple, full range of motion, no adenopathy, and thyroid normal DERMATOLOGY: Normal, without lesions, non-icteric, and non-hirsute BREAST: soft, non-tender, symmetric, no dominant mass, normal nipple-areolar complex, no lymphadenopathy, and no nipple discharge CHEST: Normal inspiratory effort ABDOMEN: soft, non-tender, and no masses PELVIC: external genitalia normal, normal Bartholin's glands, urethra, Wacissa's glands, no vulvar lesions, no cervical lesions, good vaginal support, physiologic discharge present, normal appearing perineal body and perianal region BIMANUAL: uterus normal size, shape and consistency, no adnexal masses, and non-tender RECTOVAGINAL: deferred. NEURO: alert and oriented x3,exam grossly non-focal EXTREMITIES: normal ASSESSMENT/PLAN: 1) Health maintenance: Pap/HPV up to date. Mammogram ordered Mammogram up to date Nutrition, exercise and routine health maintenance exams reviewed. Calcium/Vitamin D supplementation information provided. Colon cancer screening: patient to discuss with PCP 2. Vaginal dryness, menopausal - ICD9: 627.2, ICD10: N95.1 - ESTRADIOL 0.01% (0.1 MG/GRAM) VAGINAL CREAM 3. Recurrent genital herpes - ICD9: 054.10, ICD10: A60.00 - VALACYCLOVIR 1 GRAM TABLET 4. Unintended weight gain - ICD9: 783.1, ICD10: R63.5 - Eat primarily whole foods. Limit carbs, especially processed carbs. Eat - Meat, vegetables and fruits with skin on if possible, eggs, cheese. - Do not drink your calories - 30 grams of protein for your first meal of the day decreases your hunger during the day by up to 40 %. Options include: Premier Protein or generic 30 gm protein 1 gm sugar or 5 eggs or 2-3 eggs and some unbreaded meat and/or cheese. No fruit, vegetables, bread, grain, yogurt, Smoothies, etc. - Walk for 15 minutes immediately after meal 5) Follow up one year or sooner as needed Jenae Costa APRN.[facility] 08-12-2024 History of Presen t illness Narrative Correspondence Dictator offered: Patient declines. Jenny is a 59 year old who presents for an annual gynecologic exam without complaints. Postmenopausal: Yes since age 52 HRT use: Yes vaginal cream estrace Still get period: No Menopause symptoms: Hot flashes; Night sweats; Vaginal dryness - symptoms improving STD: genital HSV, no outbreaks Time with current partner: 37 years HPV vaccine: No; Last pap smear: 08/13/2023 normal HPV: 2023 negative History of abnormal pap:Yes, ASCUS HRHPV pos colposcopy Bothersome pelvic pain: No Last mammogram: 2023 normal [facility] History of abnormal mammogram: Yes axillary lymph nodes noted OB History Gravida2 Para2 Term0 Preterm0 AB0 Living3 SAB0 IAB0 Ectopic0 Multiple1 Live Births0 Comment: Twin girls 1 boy FAMILY HISTORY Problem Relation Age of Onset Macular Degen Paternal Grandmother Breast Cancer Paternal Aunt Breast Cancer Paternal Aunt Breast Cancer Paternal Aunt SOCIAL HISTORY Social History Tobacco Use Smoking status: Former Smokeless tobacco: Never Vaping Use Vaping status: Never Used Substance Use Topics Alcohol use: No Drug use: No REVIEW OF SYSTEMS Abdomen: No abdominal pain, nausea, vomiting, diarrhea, or constipation. No bloating, early satiety, indigestion, or increased flatulence. Bladder: No dysuria, gross hematuria, urinary frequency, urinary urgency, or incontinence Breast: No breast lumps, nipple d/c, overlying skin changes, redness or skin retraction Allergies and current medication updated:Yes SENSITIVE EXAM: The sensitive examination was discussed with the Patient or Patient's Authorized Crystal Gazer. As applicable, any other physician, advance practice provider, medical student, or other health professional student that will be observing or involved in the sensitive examination for educational or training purposes was discussed with the Patient or Authorized Crystal Gazer. The Patient or Authorized Crystal Gazer has agreed to proceed with the sensitive examination. (Sensitive examination includes inspection and/or palpation of the breasts, pelvis, prostate and anorectal regions). EXAM: BP 132/86 Ht 5' 1.811 (1.57m) Wt 167 lb (75.8kg) LMP 03/04/2008 BMI 30.73 kg/(m^2). GENERAL: pleasant, female in no apparent distress HEENT: Normocephalic, atraumatic, mucus membranes moist, and no lesions NECK: Supple, full range of motion, no adenopathy, and thyroid normal DERMATOLOGY: Normal, without lesions, non-icteric, and non-hirsute BREAST: soft, non-tender, symmetric, no dominant mass, normal nipple-areolar complex, no lymphadenopathy, and no nipple discharge CHEST: Normal inspiratory effort ABDOMEN: soft, non-tender, and no masses PELVIC: external genitalia normal, normal Bartholin's glands, urethra, Wacissa's glands, no vulvar lesions, no cervical lesions, good vaginal support, physiologic discharge present, normal appearing perineal body and perianal region BIMANUAL: uterus normal size, shape and consistency, no adnexal masses, and non-tender RECTOVAGINAL: deferred. NEURO: alert and oriented x3,exam grossly non-focal EXTREMITIES: normal ASSESSMENT/PLAN: 1) Health maintenance: Pap/HPV up to date. Mammogram ordered Mammogram up to date Nutrition, exercise and routine health maintenance exams reviewed. Calcium/Vitamin D supplementation information provided. Colon cancer screening: patient to discuss with PCP 2. Vaginal dryness, menopausal - ICD9: 627.2, ICD10: N95.1 - ESTRADIOL 0.01% (0.1 MG/GRAM) VAGINAL CREAM 3. Recurrent genital herpes - ICD9: 054.10, ICD10: A60.00 - VALACYCLOVIR 1 GRAM TABLET 4. Unintended weight gain - ICD9: 783.1, ICD10: R63.5 - Eat primarily whole foods. Limit carbs, especially processed carbs. Eat - Meat, vegetables and fruits with skin on if possible, eggs, cheese. - Do not drink your calories - 30 grams of protein for your first meal of the day decreases your hunger during the day by up to 40 %. Options include: Premier Protein or generic 30 gm protein 1 gm sugar or 5 eggs or 2-3 eggs and some unbreaded meat and/or cheese. No fruit, vegetables, bread, grain, yogurt, Smoothies, etc. - Walk for 15 minutes immediately after meal 5) Follow up one year or sooner as needed Jenae Costa APRN.ALEKSANDRA documented in this encounter [facility] 10-18-2023 History of Presen t illness Narrative [facility] Nate Zelaya APRN-ALEKSANDRA Visit Note - 10/18/2023 1:20 PM This note was generated with voice recognition software and may contain errors including spelling, grammar, syntax, and misrecognization of what was dictated. Patient: Jenny Wakefield, , 58 y.o., female PCP: Lexie Covarrubias MD ----- ALLERGIES: Allergies Allergen Reactions Codeine Nausea/vomiting Morphine Nausea/vomiting CURRENT MEDICATIONS: Current Outpatient Medications Medication Instructions amoxicillin-pot clavulanate (Augmentin) 875-125 mg tablet 1 tablet, oral, 2 times daily, Take with a meal. cetirizine (ZYRTEC) 5 mg, oral, Daily estradiol (ESTRACE) 2 g, vaginal, Once Weekly fluticasone (Flonase) 50 mcg/actuation nasal spray 2 sprays, Each Nostril, Daily loratadine (Claritin) 10 mg tablet oral valACYclovir (VALTREX) 1,000 mg, oral, Daily ----- PAST MEDICAL HX: Patient Active Problem List Diagnosis Genital herpes Seasonal allergies Prediabetes Rectal prolapse SURGICAL HX: Past Surgical History: Procedure Laterality Date HEMORRHOID SURGERY FAMILY HX: No pertinent history. SOCIAL HX: reports that she quit smoking about 24 years ago. Her smoking use included cigarettes. She started smoking about 40 years ago. She has a 16 pack-year smoking history. She has never used smokeless tobacco. Employed but is off for the summer. ----- CHIEF COMPLAINT: Chief Complaint Patient presents with Earache Fullness, pain, sinus congestion x 5 days HISTORY OF PRESENT ILLNESS: The history was obtained from patientTripp Alvarado is a 58 y.o. female, who presents with a chief complaint of nasal congestion/pressure (yellow mucus; L side >R side), bilat ear pain/fullness (L>R), and a slight sore throat - sxs started 5 days ago after she was mowing the grass. Reports she has also had slight nausea - believes it could be from her PND. Denies any fever/chills, body aches, headaches, abdominal pain, chest pain, cough, wheezing/shortness of breath, rashes, urinary symptoms, vomiting, and diarrhea. Denies any lightheadedness or dizziness; no changes in mental status. No swelling in legs. Appetite is decreased ; is able to eat and drink fluids without difficulty; reports sense of taste and smell are a little off. Reports symptoms have gotten worse since onset. Has been taking AlkaSeltzer Cold, Sudafed, and Advil without much relief; no other vyeh-jii-lvdzyyl medications or home remedies for symptom management. No known ill contacts. Has not received the COVID vaccine Has not received this season's influenza vaccine. Last known COVID infection was in ~2019. Is a former smoker. No known history of asthma/COPD/respiratory issues. Reports was recently on Ciloxan drops for issues with her L eye; no other recent antibiotic use. REVIEW OF SYSTEMS: 10 systems reviewed negative with exception of history of present illness as listed above. TODAY'S VITALS: BP 117/81 (BP Location: Left arm, Patient Position: Sitting) Pulse 77 Temp 36.8 C (98.3 F) (Temporal) Resp 12 Ht 1.6 m (5' 3) Wt 72.6 kg (160 lb) SpO2 94% BMI 28.34 kg/m PHYSICAL EXAMINATION: General: Mildly ill-appearing, well nourished female; alert and oriented; in no acute distress. Sitting comfortably on exam table. Non-dyspneic. Eyes: Pupils equal, round and reactive to light. No conjunctival erythema; no scleral icterus. HENT: Mild frontal and ethmoid sinus tenderness (L>R); + audible nasal congestion. Airway patent, TMs with cloudy fluid but otherwise unremarkable; ear canals clear/unremarkable bilaterally. Nasal mucosa injected and edematous. Oral mucosa moist. Posterior pharynx mildly injected but without vesicles or oropharyngeal exudate aside from PND. Uvula is midline. Managing oral secretions without difficulty. Neck: Supple. Mildly tender, mobile anterior cervical lymphadenopathy bilat. Trachea is midline. Respiratory: Respirations easy and unlabored, Breath sounds equal. Lungs are clear to auscultation; no wheezes, rhonchi, or rales; has good air movement throughout. + non-productive cough noted only upon request. Non-dyspneic with ambulation; able to maintain SpO2. Cardiovascular: Normal rate, Regular rhythm. Normal S1S2. No m/r/g. No peripheral edema. Gastrointestinal: Soft, non-tender, non-distended; no palpable masses or organomegaly. Bowel sounds normoactive. Musculoskeletal: Grossly normal; appropriate for age. Integumentary: [place], warm, dry, and intact. No rashes or skin discoloration appreciated. Good skin turgor. Neurologic: Alert and oriented, no gross deficits. Cognition and Speech: Oriented, Speech clear and coherent. Psychiatric: Cooperative, Appropriate mood & affect. ----- Medical Decision Making LABORATORY or RADIOLOGICAL IMAGING ORDERS/RESULTS: None IMPRESSION/PLAN: Course: Worsening; stable 1. Acute sinusitis, recurrence not specified, unspecified location - amoxicillin-pot clavulanate (Augmentin) 875-125 mg tablet; Take 1 tablet by mouth 2 times a day for 10 days. Take with a meal. Dispense: 20 tablet; Refill: 0 No red flags on exam today. Symptoms consistent with viral sinusitis with associated symptoms, but reviewed other potential etiologies. She declines testing for COVID today, but encouraged precautionary measures and to consider home testing. Per pt's request, rx for watch and wait antibiotic (Augmentin) provided, with instructions to begin only if symptoms not improving over the next 3-5 days. If started, advised should finish full course of antibiotics, even if symptoms resolve more quickly. In the meantime, encouraged to continue conservative measures - instructed to push fluids, rest, and to use appropriate over the counter medications as needed for management of symptoms - discussed that Mucinex, vaporizer, Saline Nasal [place] may be helpful. Reviewed instructions for self-isolation and continued monitoring. Reviewed red flags to monitor for, counseled on potential adverse reactions of treatments, expectations for improvement in sxs, and advised to follow-up with primary care provider in 3-5 days if symptoms persist, or sooner if worsening or if any additional concerns/red flags develop. Patient verbalized understanding and agreed with plan of care; questions were encouraged and answered. RADHA Lane Advanced Practice Provider [facility] documented in this encounter [facility] Work Phone: 08-13-2023 History of Presen t illness Narrative Correspondence Dictator offered: Patient declines. Jenny is a 58 year old who presents for an annual gynecologic exam without complaints. Postmenopausal: Yes since age 52 HRT use: Yes vaginal cream Last Pap: normal HPV: negative History of abnormal pap: Yes Last mammogram: 2022 normal History of abnormal mammogram: Yes Sexually active: Yes Vaginal dryness: Yes OB History T0 L3 SAB0 IAB0 Ectopic0 Multiple1 Live Births0 Comment: Twin girls 1 boy [employer]door Landscape [employer] History LMP: 03/04/2008, Having periods Age at Menarche: Age at First : Age at Menopause: [employer]door Landscape [employer] History Comments: Sexual Activity: Yes; Male; postmenopausal Contraception: No contraception data on record PAST MEDICAL HISTORY Diagnosis Date Seasonal allergies PAST SURGICAL HISTORY Procedure Laterality Date HEMORRHOIDECTOMY INT & XTRNL 2/> COLUMN/CESARIO FAMILY HISTORY Problem Relation Age of Onset Macular Degen Paternal Grandmother Breast Cancer Paternal Aunt Breast Cancer Paternal Aunt Breast Cancer Paternal Aunt SOCIAL HISTORY Social History Tobacco Use Smoking status: Former Smokeless tobacco: Never Vaping Use Vaping Use: Never used Substance Use Topics Alcohol use: No Drug use: No REVIEW OF SYSTEMS Abdomen: No abdominal pain, nausea, vomiting, diarrhea, or constipation. No bloating, early satiety, indigestion, or increased flatulence. Bladder: No dysuria, gross hematuria, urinary frequency, urinary urgency, or incontinence Breast: No breast lumps, nipple d/c, overlying skin changes, redness or skin retraction Allergies and current medication updated:Yes EXAM: Ht 5' 2 (1.58m) Wt 159 lb (72.1kg) LMP 03/04/2008 BMI 29.07 kg/(m^2). GENERAL: pleasant, female in no apparent distress HEENT: Normocephalic, atraumatic, mucus membranes moist, and no lesions NECK: Supple, full range of motion, no adenopathy, and thyroid normal DERMATOLOGY: Normal, without lesions, non-icteric, and non-hirsute BREAST: soft, non-tender, symmetric, no dominant mass, normal nipple-areolar complex, no lymphadenopathy, and no nipple discharge CHEST: Normal inspiratory effort ABDOMEN: soft, non-tender, and no masses PELVIC: external genitalia normal, normal Bartholin's glands, urethra, [place]'s glands, no vulvar lesions, no cervical lesions, good vaginal support, physiologic discharge present, normal appearing perineal body and perianal region, atrophic changes BIMANUAL: uterus normal size, shape and consistency, no adnexal masses, and non-tender RECTOVAGINAL: deferred. NEURO: alert and oriented x3,exam grossly non-focal EXTREMITIES: normal ASSESSMENT/PLAN: 1) Health maintenance: Mammogram due September 2023 2) Follow up one year or sooner as needed 3). Hx of HSV- valtrex suppression 4) vaginal dryness- estrogen cream Lubna Velazquez MD documented in this encounter [facility] 08-07-2023 Evaluation + Plan note Associated Problem(s): Prediabetes Recheck hemoglobin A1c [facility] Work Phone: 08-07-2023 Evaluation + Plan note Associated Problem(s): Rectal prolapse - Chronic problem, unresolved, new to this provider, requires further workup and treatment - Discussed with pt that I would recommend stool softeners as well as pelvic physical therapy. She is going to look into this and see if she has any improvement. [facility] Work Phone: 08-07-2023 Miscellaneous Notes Associated Problem(s): Prediabetes Recheck hemoglobin A1c Associated Problem(s): Rectal prolapse - Chronic problem, unresolved, new to this provider, requires further workup and treatment - Discussed with pt that I would recommend stool softeners as well as pelvic physical therapy. She is going to look into this and see if she has any improvement. documented in this encounter [facility] Work Phone: 08-07-2023 History of Presen t illness Narrative Subjective: Jenny Wakefield is a 58 y.o. female who presents to clinic today for Establish Care Establish Care, last seen by primary care only when sick several years ago Questions about how she has been feeling lately She has been feeling more tired lately She has a history of struggling with her glucose at one point, was told that she had prediabetes She's also noted a lot of issues with her eyes lately She's been having swelling of her bilateral knee, she thinks its been going on for 9 months She notes occasional aching Icing has not been helpful Review of Systems Assessment/Plan: Jenny Wakefield is a 58 y.o. female with a history of rectal prolapse, seasonal allergies and vaginal dryness who presents to clinic today to address the following issues: 1. Rectal prolapse 2. Screen for colon cancer Colonoscopy Screening; Average Risk Patient 3. Prediabetes Comprehensive metabolic panel Hemoglobin A1c 4. Screening, lipid Lipid panel 5. Screening, anemia, deficiency, iron CBC and Auto Differential 6. Need for prophylactic vaccination against diphtheria and tetanus Tdap vaccine, age 7 years and older (BOOSTRIX) Discussed with Corinne that she likely has very early stages of osteoarthritis of bilateral knees. She has not had any pain so I do not feel that further evaluation at this time is warranted. We discussed ways to help minimize of arthritis including regular gentle physical activity and continuing to move. Problem List Items Addressed This Visit Prediabetes Current Assessment & Plan Recheck hemoglobin A1c Relevant Orders Comprehensive metabolic panel Hemoglobin A1c Rectal prolapse - Primary Overview She has had this going on since the of her second child and has been managing this on her own without any intervention. Current Assessment & Plan - Chronic problem, unresolved, new to this provider, requires further workup and treatment - Discussed with pt that I would recommend stool softeners as well as pelvic physical therapy. She is going to look into this and see if she has any improvement. Other Visit Diagnoses Screen for colon cancer Relevant Orders Colonoscopy Screening; Average Risk Patient Screening, lipid Relevant Orders Lipid panel Screening, anemia, deficiency, iron Relevant Orders CBC and Auto Differential Need for prophylactic vaccination against diphtheria and tetanus Relevant Orders Tdap vaccine, age 7 years and older (BOOSTRIX) (Completed) Patient Instructions I would recommend getting your shingles vaccine at the pharmacy. You get one now and one in 2-6 months. About 30% of people will feel unwell after the shot so I recommend getting it done on a day that you do not have important plans the next day. Follow up: 6 months Return precautions discussed. An After Visit Summary was given to the patient. All questions were answered and patient in agreement with plan. Objective: BP 124/76 Pulse 74 Ht 1.6 m (5' 3) Wt 72.3 kg (159 lb 4.8 oz) SpO2 96% BMI 28.22 kg/m Physical Exam Vitals and nursing note reviewed. Constitutional: General: She is not in acute distress. Appearance: Normal appearance. HENT: Head: Normocephalic and atraumatic. Mouth/Throat: Mouth: Mucous membranes are moist. Eyes: General: No scleral icterus. Right eye: No discharge. Left eye: No discharge. Extraocular Movements: Extraocular movements intact. Conjunctiva/sclera: Conjunctivae normal. Cardiovascular: Rate and Rhythm: Normal rate and regular rhythm. Pulmonary: Effort: Pulmonary effort is normal. No respiratory distress. Breath sounds: Normal breath sounds. Abdominal: General: Abdomen is flat. There is no distension. Palpations: Abdomen is soft. Musculoskeletal: Comments: Minimal effusions of bilateral knees, otherwise normal knee exam without pain or tenderness normal Rosaline and anterior posterior drawer test Skin: General: Skin is warm and dry. Neurological: General: No focal deficit present. Mental Status: She is alert and oriented to person, place, and time. Psychiatric: Attention and Perception: Attention normal. Mood and Affect: Mood normal. Speech: Speech normal. Behavior: Behavior normal. Cognition and Memory: Cognition and memory normal. Judgment: Judgment normal. I spent 34 minutes in total time for this visit including all related clinical activities before, during, and after the visit excluding other billable activities/procedure time. Lexie Covarrubias MD documented in this encounter [facility] Work Phone: 08-07-2023 Instructions Lexie Covarrubias MD - 08/07/2023 2:00 PM EDT I would recommend getting your shingles vaccine at the pharmacy. You get one now and one in 2-6 months. About 30% of people will feel unwell after the shot so I recommend getting it done on a day that you do not have important plans the next day. documented in this encounter [facility] Work Phone: 06-21-2023 History of Presen t illness Narrative 57 y.o. female presents for evaluation of left lower eyelid swelling that began 1 week ago. Has been trying warm compresses and OTC ointment without improvement. No fever, headache, URI symptoms, visual changes or any other associated symptoms. Has a history of blepharitis. Vitals: 06/21/23 1722 BP: 134/88 Pulse: 65 Resp: 16 Temp: 36.5 C (97.7 F) SpO2: 98% No Known Allergies Medication Documentation Review Audit Reviewed by Jennifer Petersen MA ([employer]) on 06/21/23 at 1721 Medication Order Taking? Sig Documenting Provider Last Dose Status fluticasone (Flonase) 50 mcg/actuation nasal spray [id number] Yes Administer 2 sprays into each nostril once daily. Historical Provider, Active loratadine (Claritin) 10 mg tablet [id number] Take by mouth. Historical Provider, Active No past medical history on file. No past surgical history on file. ROS See HPI Physical Exam Vitals and nursing note reviewed. Assessment/Plan/MDM Jenny was seen today for eye problem. Diagnoses and all orders for this visit: Blepharitis of left lower eyelid, unspecified type (Primary) - erythromycin (Romycin) 5 mg/gram (0.5 %) ophthalmic ointment; Apply to left eye 3 times a day for 10 days. Apply Amount per Dose: 0.25 inch (~0.5 cm) per dose - ttibepsx-gorpdsnzx-[id number] e (Maxitrol) 3.5mg/mL-10,000 unit/mL-0.1 % ophthalmic suspension; Administer 1 drop into the left eye 2 times a day for 7 days. Encouraged cool compresses, otc antiinflammatories. Patient's clinical presentation is otherwise unremarkable at this time. Patient is discharged with instructions to follow-up with primary care or seek emergency medical attention for worsening symptoms or any new concerns. Brian Alberto CNP [facility] [phone] documented in this encounter [facility] Work Phone: 08-10-2021 Instructions Ilan Collier MD - 08/10/2021 4:18 PM EDT Continue: Pataday solution daily Both Eyes. If you have any questions please contact our office at [phone]. After office hours or on the weekend, please call Dr. Collier on his cell phone at [phone]. documented in this encounter [facility] 08-10-2021 History of Presen t illness Narrative ASSESSMENT/PLAN: 1. Allergic conjunctivitis of both eyes - ICD9: 372.14, ICD10: H10.13 Patient states she saw Dr. Esqueda and was diagnosed with Allergic Rhinitis and multiple seasonal allergies. Continue: Pataday solution daily Both Eyes. 2. Seasonal allergic rhinitis due to pollen - ICD9: 477.0, ICD10: J30.1 Continue to monitor with Dr. Esqueda. 3. 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 Rivera for further evaluation and treatment and patient declined. Ilan Collier MD I have confirmed and edited as necessary the relevant ophthalmic history, review of systems, surgical history, and ophthalmological examination findings as obtained by the ophthalmic technical staff. I have seen and examined Jenny Wakefield. I have discussed the examination findings, diagnosis, and treatment options with Jenny Wakefield and/or her family. I have also reviewed and agree with the assessment and plan as stated above and agree with all its relevant components. I gave the patient the opportunity to ask questions about the findings, diagnosis, and treatment options. documented in this encounter [facility] 07-20-2021 Instructions Ilan Collier MD - 07/20/2021 4:22 PM EDT Continue: Ice packs twice daily for 10 minutes Both Eyes. Alrex solution instill 1 drop 3 times daily Both Eyes for 3 days, then 2 times daily for 3 days, then 1 time daily for 3 days then discontinue If you have any questions please contact our office at [phone]. After office hours or on the weekend, please call Dr. Collier on his cell phone at [phone]. documented in this encounter [facility] 07-20-2021 History of Presen t illness Narrative ASSESSMENT/PLAN: 1. Allergic conjunctivitis of both eyes - ICD9: 372.14, ICD10: H10.13 (primary diagnosis) 2. Epiphora both eyes Blood pressure 115/74, pulse 83, last menstrual period 03/04/2008. Blanching of conjunctiva after instilling Phenylephrine solution Both Eyes. Start: Ice packs twice daily for 10 minutes Both Eyes. 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 Seasonal allergies - ICD9: 477.9, ICD10: J30.2 Patient is undergoing allergy testing with Dr. Yin Collier MD I have confirmed and edited as necessary the relevant ophthalmic history, review of systems, surgical history, and ophthalmological examination findings as obtained by the ophthalmic technical staff. I have seen and examined Jenny Wakefield. I have discussed the examination findings, diagnosis, and treatment options with Jenny Wakefield and/or her family. I have also reviewed and agree with the assessment and plan as stated above and agree with all its relevant components. I gave the patient the opportunity to ask questions about the findings, diagnosis, and treatment options. documented in this encounter [facility] 07-06-2021 Instructions Ilan Collier MD - 07/06/2021 11:06 AM EDT Discontinue: Erythromycin ointment Both Eyes. Warm compresses Both Eyes. Refresh Optive (PF) solution Both Eyes. Start: Ice packs twice daily for 10 minutes Both Eyes. Alrex solution instill 1 drop 4 times daily Both Eyes. If you have any questions please contact our office at [phone]. After office hours or on the weekend, please call Dr. Collier on his cell phone at [phone]. documented in this encounter [facility] 07-06-2021 History of Presen t illness Narrative ASSESSMENT/PLAN: 1. Allergic conjunctivitis of both eyes - ICD9: 372.14, ICD10: H10.13 (primary diagnosis) Blanching of conjunctiva after instilling Phenylephrine solution Both Eyes. Discontinue: Erythromycin ointment Both Eyes. Warm compresses Both Eyes. Refresh Optive (PF) solution Both Eyes. Start: Ice packs twice daily for 10 minutes Both Eyes. Alrex solution instill 1 drop 4 times daily Both Eyes. 2. Seasonal allergies - ICD9: 477.9, ICD10: J30.[address] Yin VELÁSQUEZ for treatment. Ilan Collier MD I have confirmed and edited as necessary the relevant ophthalmic history, review of systems, surgical history, and ophthalmological examination findings as obtained by the ophthalmic technical staff. I have seen and examined Jenny Wakefield. I have discussed the examination findings, diagnosis, and treatment options with Jenny Wakefield and/or her family. I have also reviewed and agree with the assessment and plan as stated above and agree with all its relevant components. I gave the patient the opportunity to ask questions about the findings, diagnosis, and treatment options. documented in this encounter [facility] 07-05-2021 Note [facility] Work Phone: Pap Smear Specimen Adequacy July 05, 2021 11:15am Comment Satisfactory for evaluation. No endocervical component is identified. Comment on above: Satisfactory for soco luation. No endocervical component is identified. 07-05-2021 Note [facility] Work Phone: Pap Smear Specimen Adequacy July 05, 2021 11:15am Comment Satisfactory for evaluation. No endocervical component is identified. Comment on above: Satisfactory for soco luation. No endocervical component is identified. 06-30-2021 Miscellaneous Notes Patient calling to state that her drops are finished but she is still having flare ups, has appointment 07/06/21. Needs to know if she should continue hot compresses. Please advise patient and close encounter. documented in this encounter [facility] Evaluation note Diagnosis Allergic conjunctivitis of both eyes- Primary Other chronic allergic conjunctivitis Seasonal allergies Allergic rhinitis, cause unspecified [facility] noteNo assessment information availableWMary[facility] Work [facility] Evaluation note* Diagnosis Allergic conjunctivitis of both eyes- Primary Other chronic allergic conjunctivitis Bilateral epiphora Epiphora, unspecified as to cause Seasonal allergies Allergic rhinitis, cause unspecified [facility] Diagnosis Allergic conjunctivitis of both eyes- Primary Other chronic allergic conjunctivitis Seasonal allergic rhinitis due to pollen 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 Epiphora due to excess lacrimation [facility] Diagnosis Blepharitis of left lower eyelid, unspecified type- Primary documented in this encounter [facility] Work Phone: Evaluation note* Diagnosis Rectal prolapse- Primary Screen for colon cancer Special screening for malignant neoplasms, colon Prediabetes Other abnormal glucose Screening, lipid Screening, anemia, deficiency, iron Screening for iron deficiency anemia Need for prophylactic vaccination against diphtheria and tetanus documented in this encounter [facility] Work Phone: Evaluation note* Diagnosis Encounter for gynecological examination (general) (routine) without abnormal findings- Primary Encounter for screening for malignant neoplasm of cervix Screening for malignant neoplasm of the cervix Special screening examination for human papillomavirus (HPV) Encounter for screening mammogram for malignant neoplasm of breast Other screening mammogram Vaginal dryness, menopausal Symptomatic menopausal or female climacteric states [facility]* Diagnosis Vaginal dryness, menopausal Symptomatic menopausal or female climacteric states [facility] Diagnosis Rectal prolapse- Primary Screen for colon cancer Special screening for malignant neoplasms, colon Prediabetes Other abnormal glucose Screening, lipid Screening, anemia, deficiency, iron Screening for iron deficiency anemia Need for prophylactic vaccination against diphtheria and tetanus Acute sinusitis, recurrence not specified, unspecified location- Primary documented in this encounter [facility] Work Phone: Evaluation note* Diagnosis Encounter for gynecological examination (general) (routine) without abnormal findings- Primary Vaginal dryness, menopausal Symptomatic menopausal or female climacteric states Recurrent genital herpes Genital herpes, unspecified Unintended weight gain Abnormal weight gain Encounter for screening mammogram for breast cancer [facility] Diagnostic Procedure Only (Routine) - Pending Review Specialty Diagnoses / Procedures Referred By Kassandra harris Referred To Contact [facility] Diagnoses Encounter for screening mammogram for malignant neoplasm of breast Procedures THONY SCREENING SCREENING MAMMOGRAPHY BI 2-VIEW BREAST INC CAD Lubna Velazquez MD [address] [place] [address] [facility] [address] [place] [phone] Referral ID Status Reason Start Date Expiration Date Visits Requested Visits Authorized [id number] Pending Review Auto-Generat ed Referral 08/13/2023 09/11/2024 1 1 [facility] Summary Purpose Family History No Family History Records FoundNo Family History Records FoundNo Family History Records FoundNo Family History Records FoundNo Family History Records FoundNo Family History Records FoundNo Family History Records FoundNo Family History Records Found Advance Directives No Advanced Directives Records FoundNo Advanced Directives Records FoundNo Advanced Directives Records FoundNo Advanced Directives Records FoundNo Advanced Directives Records FoundNo Advanced Directives Records FoundNo Advanced Directives Records FoundNo Advanced Directives Records Found Medications Administered Section Active Administered Medications - up to 3 most recent administrations Medication Order MAR Action Action Date Dose Rate Site fluorescein-benoxinate 0.25-0.4 % 1 Drop (FLURESS) 1 Drop, BOTH EYES, DIRECTED, Starting on Sun07/20/21 at 1630, Until Eli 07/21/21 at 0429, Administer for applanation tonometry. In the event of a Fluress shortage, administer Hamida-Fluor 1 drop into both eyes as directed for applanation tonometry Given 07/20/2021 4:11 PM EDT 1 Drop Chief Complaint and Reason for Visit Chief Complaint SCREENING Reason for Referral Specialty Diagnoses / Procedures Referred By Contac t Referred To Contact Gastroenterology Diagnoses Screen for colon cancer Procedures Colonoscopy Screening; Average Risk Patient [place] COLONOSCOPY FLX DX W/COLLJ SPEC WHEN PFRMD [place] COLON CA SCRN NOT HI RSK IND [place] COLORECTAL SCRN; HI RISK IND [place] COLONOSCOPY W/BIOPSY SINGLE/MULTIPLE [place] COLSC FLX W/RMVL OF TUMOR POLYP LESION SNARE TQ [place] COLSC FLX W/REMOVAL LESION BY HOT BX FORCEPS Lexie Covarrubias MD [address] [place] [address] Referral ID Status Reason Start Date Expiration Date V isits Requested Visits Authorized [id number] Pending Review 08/07/2023 08/06/2024 1 1 Additional Source Comments INFORMATION SOURCE (unrecogn ized section and content) DATE CREATED AUTHOR 04/07/2018 [facility] DATE CREATED AUTHOR AUTHOR'S ORGANIZ ATION 11/23/2018 [employer] [facility] DATE CREATED AUTHOR AUTHOR'S ORGANIZ ATION 11/16/2022 [facility] DATE CREATED AUTHOR AUTHOR'S ORGANIZ ATION 08/12/2023 [facility] DATE CREATED AUTHOR AUTHOR'S ORGANIZ ATION 10/24/2023 [facility] DATE CREATED AUTHOR AUTHOR'S ORGANIZ ATION 02/19/2024 [facility] DATE CREATED AUTHOR AUTHOR'S ORGANIZ ATION 08/15/2024 [facility] DATE CREATED AUTHOR AUTHOR'S ORGANIZ ATION 11/07/2024 [facility] Source Comments (unrecognize d section and content) In the event this informatio n is protected by the Federal Confidentiality of Alcohol and Drug Abuse Patient Records regulations: The Federal rules restrict any use of the information to criminally investigate or prosecute any alcohol or drug abuse patient.[facility] the event this information is protected by the Federal Confidentiality of Alcohol and Drug Abuse Patient Records regulations: The Federal rules restrict any use of the information to criminally investigate or prosecute any alcohol or drug abuse patient.[facility] Shaw[facility] the event this information is protected by the Federal Confidentiality of Alcohol and Drug Abuse Patient Records regulations: The Federal rules restrict any use of the information to criminally investigate or prosecute any alcohol or drug abuse patient.[facility] ShawIn the event this information is protected by the Federal Confidentiality of Alcohol and Drug Abuse Patient Records regulations: The Federal rules restrict any use of the information to criminally investigate or prosecute any alcohol or drug abuse patient.[facility] ShawIn the event this information is protected by the Federal Confidentiality of Alcohol and Drug Abuse Patient Records regulations: The Federal rules restrict any use of the information to criminally investigate or prosecute any alcohol or drug abuse patient.[facility] ShawIn the event this information is protected by the Federal Confidentiality of Alcohol and Drug Abuse Patient Records regulations: The Federal rules restrict any use of the information to criminally investigate or prosecute any alcohol or drug abuse patient.[facility] ShawIn the event this information is protected by the Federal Confidentiality of Alcohol and Drug Abuse Patient Records regulations: The Federal rules restrict any use of the information to criminally investigate or prosecute any alcohol or drug abuse patient.[facility] ShawIn the event this information is protected by the Federal Confidentiality of Alcohol and Drug Abuse Patient Records regulations: The Federal rules restrict any use of the information to criminally investigate or prosecute any alcohol or drug abuse patient.[facility] Reason for Visit (unrecogniz ed section and content) Reason Comments Allergic conjunctivitis Both Eyes Reason Comments Patient Question Reason Comments Allergic conjunctivitis Tearing Both Eyes Redness both eyes Reason Comments Eye Problem Left eye irritation X 1 week Reason Comments Establish Care Reason Comments Yearly Exam Reason Onset Date Comments Refill Request 12/15/2023 Reason Onset Date Comments Refill Request 12/17/2023 Reason Comments Earache Fullness, pain, sinu s congestion x 5 days Reason Comments [facility] Teams (unrecognized sec tion and content) Costume Mistress Relationship Specialty Start Date End Date Edna uDckworth PCP - General 03/10/08 Costume Mistress Relationship Specialty Start Date End Date Edna Duckworth PCP - General 03/10/08 Costume Mistress Relationship Specialty Start Date End Date Edna Duckworth PCP - General 03/10/08 Costume Mistress Relationship Specialty Start Date End Date Edna Duckworth PCP - General 03/10/08 Team Status: Active Member Role Status Dates Dr. Edna Duckworth MD Family Provider Active Dr. Edna Duckworth MD Primary Care Provider Active Team Status: Inactive Member Role Status Dates Dr. Edna Duckworth MD Primary Care Provider Active Dr. Rochelle Donnelly DO Attending Provider, Mariama rivera Provider Active Costume Mistress Relationship Specialty Start Date End Date Miryam Zapata MD PCP - General 07/04/22 Costume Mistress Relationship Specialty Start Date End Date Lexie Covarrubias MD [address] [place] [address] PCP - General Family Medicine 07/03/23 Costume Mistress Relationship Specialty Start Date End Date Edna Duckworth MD PCP - General 03/10/08 Costume Mistress Relationship Specialty Start Date End Date Edna Duckworth MD PCP - General 03/10/08 Costume Mistress Relationship Specialty Start Date End Date Lexie Covarrubias MD [address] [place] [address] PCP [facility] 07/03/23 Costume Mistress Relationship Specialty Start Date End Date Edna Duckworth MD PCP - General 03/10/08 Goals (unrecognized section and content) Goals may be documented in a n alternate sectionGoals may be documented in an alternate sectionGoals may be documented in an alternate section <item><item><item> Privacy Markings (unrecogniz ed section and content) Section Author: Argelia Oswald PROHIBITION ON REDISCLOSURE OF CONFIDENTIAL INFORMATION This notice accompanies a disclosure of information concerning a client made to you with the consent of such client. Section Author: Argelia Oswald PROHIBITION ON REDISCLOSURE OF CONFIDENTIAL INFORMATION This notice accompanies a disclosure of information concerning a client made to you with the consent of such client. Section Author: Argelia Oswald PROHIBITION ON REDISCLOSURE OF CONFIDENTIAL INFORMATION This notice accompanies a disclosure of information concerning a client made to you with the consent of such client. FOR RECORDS PERTAINING TO PATIENTS WHO ARE OR HAVE BEEN ENROLLED IN A CHEMICAL DEPENDENCY/SUBSTANCEABUSE PROGRAM, SOME INFORMATION MAY BE OMITTED. This clinical summary was aggregated from multiple sources. Caution should be exercised in using it in the provision of clinical care. This summary normalizes information from multiple sources, and as a consequence, information in this document may materially change the coding, format and clinical context of patient data. In addition, data may be omitted in some cases. CLINICAL DECISIONS SHOULD BE BASED ON THE PRIMARY CLINICAL RECORDS. [facility] [employer] [facility]. provides no warranty or guarantee of the accuracy or completeness of information in this document.
== END | disposition home or self-care (01) ==
LOC: OPBI 10:37
PROVIDERS: PCP Obstetrics & Gynecology; Referring Provider Nurse Practitioner Family; Visit Provider Nurse Practitioner Family
DX: Z12.31 Encounter for screening mammogram for malignant neoplasm of breast (principal)
CPT/HCPCS: 77063; 77067